=== PATIENT | male | born 1940 | race Caucasian/White ===

== ENCOUNTER 2022-01-30 17:53 | Emergency (ER) | payer MEDICARE, SELFPAY ==
[2022-01-30 17:55] VITALS: BP 169/99; PULSE 67; RESP 12; TEMP 35.7; O2SAT 93; BMI 33.5
--- NOTE | 2022-01-30 18:13 | EDS_ITS ---
HPI HPI - Psych History of Present Illness Chief Complaint: Depression Detail of Chief Complaint: Depression for years Informant: patient, spouse/S.O. and family Onset/Context/Timing Onset: - (Years) Context: Continuous Conflict: Family Timing: Continuous and Waxes and wanes Worsened by: Situational factors Relieved by: Nothing Associated Symptoms Associated Symptoms - Psych: Positive for Depressed, Change in Eating, Change in sleeping, Decreased Interest, Decreased Concentration and Easily distracted; Negative for Visual Hallucinations and Auditory Hallucinations Specific plan (suicidal thought): Patient has no plan Narrative Narrative: Patient is an 81-year-old male who has been depressed for years. He was seen by therapist Jah at 180. Therapist Jah called Cait from the crisis center that she was going to send Mr. Stahl in for admission. Therapist Jah never contacted the emergency department. Patient had thought of harming himself several days ago. He has no specific plan and states he could never hurt himself. He is never hurt himself in the past. He was recently started on trazodone and BuSpar. He is also on Effexor. He has been under stressors of hospitalization, fractured her kneecap and of a relative. He denies suicidal homicidal ideation. He is had problems with sleep appetite and interest. thought he was hallucinating because he states there is commercials on TV and is misperceiving what is on TV. I informed the daughter and the that these are not hallucination and I was told by the daughter that I have bad bedside manners . Patient denies heat or cold intolerance. Prior similar symptoms: Yes Recent Illness/Hospitalization: Yes (For pneumonia) PFSH [facility] Medical History Anxiety Depression Hyperlipidemia Hypertension Type 2 diabetes mellitus Home Medications atenolol 100 mg PO DAILY 01/30/22 [History Last Taken Unknown] buspirone 15 mg PO BID 01/30/22 [History Last Taken Unknown] gabapentin 300 mg PO DAILY 01/30/22 [History Last Taken Unknown] hydrochlorothiazide 25 mg PO DAILY 01/30/22 [History Last Taken Unknown] lisinopril 40 mg PO DAILY 01/30/22 [History Last Taken Unknown] metformin 500 mg PO DAILY 01/30/22 [History Last Taken Unknown] omeprazole 40 mg PO DAILY 01/30/22 [History Last Taken Unknown] pravastatin 40 mg PO DAILY 01/30/22 [History Last Taken Unknown] tamsulosin 0.4 mg PO DAILY 01/30/22 [History Last Taken Unknown] trazodone 50 mg PO DAILY 01/30/22 [History Last Taken Unknown] venlafaxine [Effexor] 150 mg PO DAILY 01/30/22 [History Last Taken Unknown] Allergy/AdvReac Type Severity Reaction Status Date / Time No Known Allergies Allergy Verified 01/30/22 17:55 Social History (Updated 01/30/22 @ 18:[address] Luis Garcia MD) household members: spouse Smoking Status: Never smoker substance use type: does not use ROS ROS ED Constitutional Constitutional ED: Reports weight loss; Denies chills, fever(s), subjective or sweats Eyes Eyes: Denies blurry vision, change in vision or diplopia ENT ENT ED: Denies ear pain, rhinorrhea or sore throat Cardiovascular Cardiovascular: Denies chest pain, palpitations or racing heartbeat Respiratory/Chest Respiratory/Chest: Denies cough or dyspnea Gastrointestinal Gastrointestinal: Denies abdominal pain, diarrhea, nausea or vomiting Genitourinary Genitourinary ED: Denies dysuria, hematuria or urinary frequency Musculoskeletal Musculoskeletal: Denies arthralgias, myalgias or neck pain Integumentary Denies Abrasions or rash Neurologic Neurologic: Reports weakness; Denies headache(s) or paresthesias Psychiatric Psychiatric: Reports anxiety and depression; Denies suicidal ideation or suicidal thoughts Endocrine Endocrinology: Denies polydipsia, polyphagia or polyuria Hematologic/Lymphatic Hematologic/Lymphatic: Denies easy bleeding or easy bruising EXAM Physical Exam Const Vital Signs: 01/30/22 17:55 Temperature 96.3 F L Temperature Source Temporal Pulse Rate 67 Respiratory Rate 12 Blood Pressure 169/99 H Blood Pressure Mean 122 Pulse Ox 93 Oxygen Delivery Method Room Air Positive well nourished, well developed and obese General Appearance ED: well developed and NAD; Negative for pallor Nutritional Appearance: obese HEENT normocephalic and atraumatic Eyes PERRL and EOMs intact bilaterally General Eye ED: Negative for pale conjunctiva or scleral icterus Neck no lymphadenopathy, supple and no JVD Resp normal respiratory effort and clear to auscultation bilaterally Cardio S1 normal heart sound, S2 normal heart sound and no murmurs Rate: regular rate Rhythm: regular rhythm GI non-tender, non-distended and no masses Auscultation: normoactive bowel sounds Palpation: soft Back/Spine no CVA tenderness Cervical Spine: Negative for cervical spine tenderness Thoracic Spine / Upper Back: Negative for thoracic spinal tenderness Lumbar Spine / Lower Back: Negative for lumbar spinal tenderness Extremity normal to inspection General Extremety ED: Negative for edema or tenderness General Extremity: Negative for edema Neuro oriented x3, CN's II-XII intact bilaterally and deep tendon reflexes 2+ bilaterally Tonia Coma Scale: document GCS findings Spontaneous Obeys Commands Oriented 15 Sensorium / Orientation: alert Psych thought process normal, cooperative, denies hallucinations, denies homicidal ideation and denies suicidal ideation; Negative for mental status grossly normal Appearance: appropriate Attitude: withdrawn Activity / Motor Behavior: appropriate eye contact and psychomotor slowing Speech: minimal, slow and soft Mood & Affect: depressed, apathetic and flat affect Thought Process: normal thought process Thought Content: No suicidality, No homicidality, No phobia(s), No hallucination(s), No derealization, No depersonalization, No compulsion(s) and No obsession(s) Attention / Concentration: attention grossly intact Memory / Cognition: memory grossly intact Insight: fair Judgement: fair Skin General Skin Exam: Negative for jaundice or pallor Lesions: no lesions Rashes: no rashes MDM MDM MDM Narrative Medical decision making narrative: Patient and family were told in my professional opinion patient does not meet criteria for admission. They were upset because they were sent here for hospitalization. They informed me that therapist Jah contact crisis. Crisis was contacted. Cait answered the call. She did receive a call from spenser Tyson. She agrees based on what therapist adriane said patient does not meet criteria. She also informed me that patient was seen at [facility] last evening and was sent home because he did not meet criteria for admission. This was withheld during my history and physical with the patient and family. I informed Cait that the family is requesting crisis see Mr. Stahl. She states Yasmeen is presently with someone and will be by when she is completed her present evaluation. At this point no laboratory tests were ordered. Patient was asked if he would voluntarily be admitted to a psychiatric facility and he responded no. In my professional medical opinion patient has the capac ity to refuse admission to a psychiatric facility. Furthermore in my professional medical opinion patient does not meet criteria for emergent psychiatric admission, [facility] . I was informed by Yasmeen that she completed her evaluation at 1920. She is going to inform the and daughter that he does not meet criteria for admission and will be discharged to home. Discharge Plan Triage Chief Complaint: Depression ED Provider: Luis Garcia Dx/Rx/DC Orders Clinical Impression: Depression Instructions: ED Depression Prescriptions: No Action trazodone 50 mg Tablet 50 mg PO DAILY RF: 0 pravastatin 40 mg Tablet 40 mg PO DAILY RF: 0 atenolol 100 mg Tablet 100 mg PO DAILY RF: 0 omeprazole 40 mg Capsule,Delayed Release(Dr/Ec) 40 mg PO DAILY RF: 0 venlafaxine [Effexor] 100 mg Tablet 150 mg PO DAILY RF: 0 tamsulosin 0.4 mg Capsule 0.4 mg PO DAILY RF: 0 hydrochlorothiazide 25 mg Tablet 25 mg PO DAILY RF: 0 lisinopril 40 mg Tablet 40 mg PO DAILY RF: 0 metformin 500 mg Tablet Extended Release 24 Hr 500 mg PO DAILY RF: 0 buspirone 15 mg Tablet 15 mg PO BID RF: 0 gabapentin 300 mg Tablet 300 mg PO DAILY RF: 0 Primary Care Provider: Jonathan Mathew NP Referrals: Jonathan Mathew TESTING MANAGER, TESTING MANAGER-C [Primary Care Provider] - 1 Week Disposition Disposition: Home, Self Care
--- NOTE | 2022-01-30 18:54 | ED.RN ---
LEYLA FROM CRISES IN TO TALK WITH PT
== END 2022-01-30 19:42 | disposition home or self-care (01) ==
PROVIDERS: Emergency Provider Emergency Medicine; PCP Nurse Practitioner Family; Visit Provider Emergency Medicine
DX: F32.A Depression, unspecified (principal); E11.9 Type 2 diabetes mellitus without complications; E78.5 Hyperlipidemia, unspecified; R44.3 Hallucinations, unspecified; I10 Essential (primary) hypertension; Z79.899 Other long term (current) drug therapy; F41.9 Anxiety disorder, unspecified
CPT/HCPCS: 99282

== ENCOUNTER 2022-08-16 20:04 | Inpatient (IN) | payer MEDICARE, SELFPAY ==
[2022-08-16] VITALS (8 sets, daily range): BP systolic 83–97; BP diastolic 56–69; PULSE 99–110; RESP 27–45; TEMP 36.3–37.6; O2SAT 97–99; BMI 30.4
--- NOTE | 2022-08-16 20:21 | EDS_ITS ---
HPI History of Present Illness Chief Complaint: General Illness Detail of Chief Complaint: Fever, hematuria, mental status change Informant: EMS and SNF Onset/Context/Timing Onset: Today Narrative Narrative: Patient presents the emergency department via EMS. Patient had a care home facility in a dementia unit. Apparently today they noticed low oxygen level and low blood pressure and decreased mentation. Referred to the ER for evaluation. Patient also was noted to have hematuria from his Lora catheter bag. Patient is a very poor historian although he did deny chest pain and denied abdominal pain when asked. [facility] Medical History Anxiety Depression Hyperlipidemia Hypertension Type 2 diabetes mellitus Home Medications metformin 500 mg tablet,extended release 24 hr 500 mg PO BID 01/30/22 [History Last Taken Unknown] omeprazole 40 mg capsule,delayed release 20 mg PO DAILY 01/30/22 [History Last Taken Unknown] tamsulosin 0.4 mg capsule 0.4 mg PO DAILY 01/30/22 [History Last Taken Unknown] amino acids-protein hydrolys 30 ml PO/SL DAILY 08/16/22 [History Last Taken Unknown] amlodipine 10 mg tablet 10 mg PO DAILY 08/16/22 [History Last Taken Unknown] apixaban 5 mg tablet (Eliquis) 5 mg PO BID 08/16/22 [History Last Taken Unknown] metoprolol tartrate 100 mg tablet 100 mg PO BID 08/16/22 [History Last Taken Unknown] mirtazapine 15 mg tablet 15 mg PO QHS 08/16/22 [History Last Taken Unknown] multivitamin 1 tab PO/SL DAILY 08/16/22 [History Last Taken Unknown] olanzapine 5 mg tablet 5 mg PO DAILY 08/16/22 [History Last Taken Unknown] Allergy/AdvReac Type Severity Reaction Status Date / Time No Known Allergies Allergy Verified 01/30/22 17:55 Social History (Updated 01/30/22 @ 18:[address] Luis Garcia MD) household members: spouse Smoking Status: Never smoker substance use type: does not use ROS ROS ED Review of Systems ROS Unobtainable: other Constitutional Constitutional ED: Reports fever(s); Denies chills, sweats or weight loss Eyes Eyes: Denies blurry vision, change in vision or diplopia ENT ENT ED: Denies rhinorrhea or sore throat Cardiovascular Cardiovascular: Denies chest pain, orthopnea or racing heartbeat Respiratory/Chest Respiratory/Chest: Reports dyspnea; Denies cough, dyspnea on exertion, orthopnea or sputum Gastrointestinal Gastrointestinal: Denies abdominal pain, diarrhea, nausea or vomiting Genitourinary Genitourinary ED: Denies dysuria, hematuria or urinary frequency Musculoskeletal Musculoskeletal: Denies arthralgias, back pain, myalgias or neck pain Integumentary Denies abscess, Abrasions or rash Neurologic Neurologic: Denies headache(s) or weakness Psychiatric Psychiatric: Denies anxiety, depression or suicidal thoughts Endocrine Endocrinology: Denies polydipsia, polyphagia or polyuria Hematologic/Lymphatic Hematologic/Lymphatic: Denies easy bleeding, easy bruising or lymphadenopathy Allergic/Immunologic Allergic/Immunologic ED: Denies mouth swelling, tongue swelling or urticaria EXAM Physical Exam Const Vital Signs: 08/16/22 20:06 08/16/22 20:12 08/16/22 20:09 Temperature 97.5 F L 97.3 F L Temperature Source Temporal Temporal Pulse Rate 110 H 107 H Respiratory Rate 45 H 34 H Respiratory Pattern Blood Pressure 85/57 L 85/57 L Blood Pressure Mean 66 66 Pulse Ox 98 97 Oxygen Delivery Method Non-Rebreather Non-Rebreather Oxygen Flow Rate (L/min) 10 10 08/16/22 20:16 08/16/22 20:17 08/16/22 21:09 Temperature 97.6 F L Temperature Source Temporal Pulse Rate 108 H Respiratory Rate 27 H Respiratory Pattern Tachypnea Blood Pressure 97/69 Blood Pressure Mean 78 Pulse Ox 99 99 Oxygen Delivery Method Nasal Cannula Nasal Cannula Oxygen Flow Rate (L/min) 4 4 08/16/22 21:04 08/16/22 22:00 08/16/22 22:00 Temperature 97.3 F L Temperature Source Temporal Pulse Rate 108 H 100 100 Respiratory Rate 27 H Respiratory Pattern Blood Pressure 92/58 L Blood Pressure Mean 69 Pulse Ox 99 Oxygen Delivery Method Nasal Cannula Oxygen Flow Rate (L/min) 3 08/16/22 23:00 08/16/22 23:00 Temperature 99.6 F H Temperature Source Oral Pulse Rate 99 99 Respiratory Rate 29 H Respiratory Pattern Blood Pressure 83/56 L Blood Pressure Mean 65 Pulse Ox 99 Oxygen Delivery Method Nasal Cannula Oxygen Flow Rate (L/min) 2 Positive well nourished and well developed General Appearance ED: well developed and NAD HEENT Reports TM's clear and moist mucous membranes normocephalic and atraumatic; Negative for trauma or tenderness Tympanic Membrane ED: Yes TM's clear Eyes PERRL and EOMs intact bilaterally General Eye ED: Negative for pale conjunctiva or scleral icterus Neck no lymphadenopathy, supple and no JVD General: Negative for tenderness Chest Wall inspection of chest normal and palpation of chest normal Chest: Negative for tenderness Resp Resp Narrative: Patient with some coarse rhonchi bilaterally with some mild tachypnea. No accessory muscle use or retractions noted. Effort and Inspection: Negative for respiratory distress or pain with movement Auscultation: rhonchi; Negative for wheezes or diminished lung sounds Cardio regular rate, regular rhythm, S1 normal heart sound, S2 normal heart sound and no murmurs Peripheral Pulses: pulses 2+ throughout GI normal to inspection, nondistended, normoactive bowel sounds, soft to palpation, non-tender, non-distended and no masses Back/Spine no CVA tenderness and no thoracic nor lumbar tenderness Extremity normal to inspection General Extremety ED: Negative for edema General Extremity: Negative for edema Neuro oriented x3, CN's II-XII intact bilaterally, no sensory deficits noted and gait normal Sensorium / Orientation: awake, alert, oriented to person, oriented to place and oriented to time Motor Exam: strength 5/5 throughout and strength abnormal Psych mental status grossly normal Skin no rashes or lesions noted and no wounds MDM MDM MDM Narrative Medical decision making narrative: IV line established on arrival. Patient received total of 3 L of normal saline for suspected sepsis. Patient initially did respond with his blood pressure increasing into the 115 systolic range but then slowly started to come back down into the 90s and 80s systolic. Patient had a white blood cell count of 3.6. Hemoglobin was 13.4. Chemistries unremarkable. He did have an elevated lactate of 7.1. LFTs were elevated. Urinalysis was significant for 100 leukocyte Estrace with 50-100 WBCs and +3 bacteria. Urine sent for culture. Patient started on Rocephin 1 g IV. Case discussed with hospitalist who presented to evaluate patient in the emergency department. Patient did require a central line placement for pressors. Patient had a chest x-ray obtained postprocedure interpreted by myself as good placement with tip of central lumen catheter in the superior vena cava without evidence of pneumothorax. Patient will be admitted to the ICU. Lab Data Labs: Laboratory Results - last 24 hr 08/16/22 08/16/22 08/16/22 20:15 20:15 20:15 WBC 3.6 L RBC 4.66 Hgb 13.4 Hct 41.2 MCV 88.4 MCH 28.8 MCHC 32.5 RDW Std Deviation 46.4 H RDW Coeff of Benjamin 14.5 Plt Count 128 L MPV 9.7 Immature Gran % (Auto) 0.500 Neut % (Auto) 93.4 H Lymph % (Auto) 4.4 L Gage % (Auto) 0.3 Eos % (Auto) 1.1 Baso % (Auto) 0.3 Absolute Neuts (auto) 3.4 Absolute Lymphs (auto) 0.16 L Nucleated RBC % 0 Differential Comment SEE COMMENT Platelet Estimate SLT DEC RBC Morphology N CHROM Anisocytosis 1+ Macrocytosis 1+ Sodium 142 Potassium 4.0 Chloride 105 Carbon Dioxide 27.0 Anion Gap 10 BUN 23 H Creatinine 1.22 Estim Creat Clear Calc 45.07 Est GFR (MDRD) Af Amer 73 Est GFR (MDRD) Non-Af 60 BUN/Creatinine Ratio 18.9 Glucose 177 H Lactic Acid 7.1 H* Calcium 9.1 Total Bilirubin 0.80 AST 300 H ALT 131 H Alkaline Phosphatase 220 H Troponin I High Sens 15 Total Protein 6.3 L Albumin 2.6 L Globulin 3.7 Albumin/Globulin Ratio 0.7 L Urine Color Urine Clarity Urine pH Ur Specific [place] Urine Protein Urine Glucose (UA) Urine Ketones Urine Occult Blood Urine Nitrite Urine Bilirubin Urine Urobilinogen Ur Leukocyte Esterase Urine RBC Urine WBC Ur Squamous Epith Cells Urine Bacteria Urine Mucus 08/16/22 20:25 WBC RBC Hgb Hct MCV MCH MCHC RDW Std Deviation RDW Coeff of Benjamin Plt Count MPV Immature Gran % (Auto) Neut % (Auto) Lymph % (Auto) Gage % (Auto) Eos % (Auto) Baso % (Auto) Absolute Neuts (auto) Absolute Lymphs (auto) Nucleated RBC % Differential Comment Platelet Estimate RBC Morphology Anisocytosis Macrocytosis Sodium Potassium Chloride Carbon Dioxide Anion Gap BUN Creatinine Estim Creat Clear Calc Est GFR (MDRD) Af Amer Est GFR (MDRD) Non-Af BUN/Creatinine Ratio Glucose Lactic Acid Calcium Total Bilirubin AST ALT Alkaline Phosphatase Troponin I High Sens Total Protein Albumin Globulin Albumin/Globulin Ratio Urine Color Red Urine Clarity Turbid Urine pH 8.0 Ur Specific [place] 1.015 Urine Protein 500 H Urine Glucose (UA) Normal Urine Ketones 5 H Urine Occult Blood 250 H Urine Nitrite Negative Urine Bilirubin Negative Urine Urobilinogen Normal Ur Leukocyte Esterase 100 H Urine RBC > 100 SEEN Urine WBC 50-100 SEEN Ur Squamous Epith Cells 0 SEEN Urine Bacteria 3+ Urine Mucus 0 SEEN Radiography Diagnostic Testing: Clinical Impression(s) from Imaging Studies Chest X-Ray 08/16/22 20:43 IMPRESSION: Degenerative changes, as described above. No demonstrated acute cardiopulmonary process. Electronically Signed: Lico Crocker DO at 20:58 EST , Gallbladder Ultrasound 08/16/22 21:16 IMPRESSION: 1. Cholelithiasis. No evidence of acute cholecystitis. 2. Simple renal cyst. Follow-up is not indicated per ACR guidelines. Electronically Signed: Elana Lazar MD at 23:11 EST Reading Location ID and State: [id number] / Tel , Service support , 1 view chest x-ray initially interpreted by myself as no acute disease process. Radiology was in agreement. EKG Initial EKG: Attestation: I personally reviewed and interpreted this EKG as follows: Comments: Sinus rhythm with a rate of 94 bpm with frequent PVCs and old inferior infarct Procedures Other Procedures Procedure(s): Patient and consented to central line placement for pressors. Area of the right subclavian sterilely draped and prepped. Locally anesthetized with 1% lidocaine total of 5 cc. Wound skin cleansed. Was able to introduce the needle underneath the clavicle towards the sternal notch and easily cannulated the subclavian vein. Guidewire placed through the needle and needle removed. 11 blade used to make a small skin incision along the guidewire and dilator placed over the wire and dilated the soft tissues. The triple-lumen catheter was flushed and all ports flushed. Triple-lumen placed over wire and wire was removed. All 3 ports were aspirated and then flushed. Catheter sewn into place. Patient Toller procedure well. Critical Care Time Critical care time (excluding procedures): 30-74 minutes, Including time spent:, Discussing w/Patient &/or Family/Oyster Worker, Discussing w/Consultants, Arranging Admission or Transfer, Performing Direct Patient Care at Bedside and - (30 minutes) Discharge Plan Dx/Rx/DC Orders Clinical Impression: Acute UTI, Severe sepsis, Acute hypotension, History of dementia, Elevated liver enzymes Disposition Disposition: Acute Care [facility]
[2022-08-16] MEDS: 0.9% Normal Saline 1,000 ML 1000 ML IV (20:30)
[2022-08-16 20:33] LABS: Absolute Lymphocyte Count 0.16 X10^3/uL (0.83-4.51); Absolute Neutrophil Count 3.4 X10^3/uL (2.0-7.7); Basophil# 0.01 X10^3/uL; Basophil% 0.3 % (0-1); Differential Indicated SCAN CRITERIA MET; Eosinophil# 0.04 X10^3/uL; Eosinophils% 1.1 % (0-5); Hematocrit 41.2 % (40-54); Hemoglobin 13.4 g/dL (13.0-16.5); Lymphocyte # 0.16 X10^3/ul (0.83-4.51); Lymphocyte % 4.4 % (19-41); Mean Corp Hgb Conc 32.5 g/dL (32-36); Mean Corpuscular Hgb 28.8 pg (27.0-32.0); Mean Corpuscular Volume 88.4 fL (80-94); Mean Platelet Vol. 9.7 fl (6.2-12.0); Monocyte# 0.01 X10^3/uL; Monocyte% 0.3 % (0-10); NRBC Flagged by Analyzer 0 % (0-5); Neutrophil % 93.4 % (47-70); POSITIVE DIFFERENTIAL YES; POSITIVE MORPHOLOGY YES; Platelet Count 128 K/mm3 (150-450); RBC Distribution Width CV 14.5 % (11.6-14.6); RBC Distribution Width SD 46.4 fl (35.1-43.9); Red Blood Count 4.66 M/mm3 (4.6-6.2); White Blood Count 3.6 K/mm3 (4.4-11.0)
[2022-08-16 20:38] LABS: Mucous, Urine 0 SEEN /hpf (<or=2+); Squamous Epithelial Cells - UA 0 SEEN /hpf (0-5)
[2022-08-16 20:40] LABS: Color, Urine Red (Yellow); Glucose, Dipstick Normal (Normal); Ketone-Dipstick 5 mg/dl (Negative); Leukocyte Esterase-Dipstick 100 /ul (Negative); Nitrite-Dipstick Negative (Negative); Occult Blood-Urine 250 /ul (Negative); Protein-Dipstick 500 mg/dl (Negative); Specific Gravity, Urine 1.015 (1.002-1.030); Urine Bilirubin Dipstick Negative (Negative); Urine Clarity Turbid (Clear); Urine Urobilinogen Normal (Normal)
--- NOTE | 2022-08-16 20:43 | RAD_ITS ---
STUDY: X-RAY CHEST REASON FOR EXAM: Male, 82 years old. Dyspnea. History of hypotension. Low oxygen saturation. New onset hematuria. TECHNIQUE: Single AP portable view of the chest. COMPARISON: None. FINDINGS: The lungs are clear and expanded. There is no demonstrated pleural abnormality. Normal size heart. Normal mediastinum and filiberto. Normal visualized pulmonary arteries. Normal visualized aortic arch and descending thoracic aorta. There are diffuse degenerative changes of the visualized thoracic spine. Normal visualized ribs, clavicles, and shoulders. There is no demonstrated abnormality of the visualized soft tissue structures of the upper abdomen. RAD/Chest 1 View (Portable) IMPRESSION: Degenerative changes, as described above. No demonstrated acute cardiopulmonary process. Electronically Signed: Lico Crocker DO at 20:58 EST ,
[2022-08-16 20:52] LABS: ALB/GLOB Ratio 0.7 RATIO (0.9-2.4); AST(SGOT) 300 U/L (15-37); Alanine Aminotransfer ALT/SGPT 131 U/L (16-61); Albumin, Serum 2.6 g/dL (3.2-5.0); Alkaline Phosphatase 220 U/L (45-117); Anion Gap 10 (5-15); BUN 23 mg/dL (7-18); BUN/Creat Ratio 18.9 RATIO (10-20); Calcium,Total 9.1 mg/dL (8.5-10.1); Chloride 105 mmol/L (98-107); Creatinine, Serum 1.22 mg/dL (0.70-1.30); EST Glomerular Filtration Rate 60 mL/min (>60); Est Glom Filt Rate - Afr Amer 73 mL/min (>60); Estimated Creatinine Clearance 45.07 ml/min; Globulin 3.7 g/dL (2.2-4.2); Glucose 177 mg/dL (74-106); Protein, Total 6.3 g/dL (6.4-8.2); Sodium Level 142 mmol/L (136-145); Troponin-I HS 15 pg/mL (3.0-78.0)
[2022-08-16 20:57] LABS: Anisocytosis 1+; Macrocytosis 1+; Platelet Estimate SLT DEC (ADEQ); Red Cell Morphology N CHROM NORMAL (NORM C&C)
[2022-08-16 21:10] LABS: Lactic Acid 7.1 mmol/L (0.4-1.9)
[2022-08-16] MEDS: 0.9% Normal Saline 1,000 ML 150 ML IV (21:13)
--- NOTE | 2022-08-16 21:16 | US_ITS ---
EXAM: US ABDOMEN LIMITED, RIGHT UPPER QUADRANT CLINICAL INDICATION: elevated liver enzymes TECHNIQUE: Real-time ultrasound of the right upper quadrant with image documentation. This report was created using [employer] report generation technology. COMPARISON: None. FINDINGS: LIVER: The liver is normal in size and echogenicity, measuring 20.4 cm. No intrahepatic biliary ductal dilation. GALLBLADDER: Multiple shadowing stones in the gallbladder. No gallbladder wall thickening is demonstrated. No pericholecystic fluid. Negative sonographic Smalls''s sign. COMMON BILE DUCT: Unremarkable as visualized. The proximal common bile duct is within normal limits for the patient''s age. PANCREAS: Unremarkable as visualized. No focal abnormality is demonstrated in the pancreas. No pancreatic ductal dilatation. RIGHT KIDNEY: Right kidney measures 10.7 x 6.4 x 6 cm. Mild renal scarring. Renal cortical thickness is otherwise normal. No mass, stone, or hydronephrosis. There is a 2.6 x 1.9 x 2.1 cm upper pole simple renal cyst. US/Gallbladder IMPRESSION: 1. Cholelithiasis. No evidence of acute cholecystitis. 2. Simple renal cyst. Follow-up is not indicated per ACR guidelines. Electronically Signed: Elana Lazar MD at 23:11 EST Reading Location ID and State: [id number] / Tel , Service support ,
[2022-08-16 21:19] LABS: Bacteria 3+ /hpf (None Seen); Red Blood Cells-Urine > 100 SEEN /hpf (0-5); White Blood Cells 50-100 SEEN /hpf (0-5)
[2022-08-16] MEDS: 0.9% Normal Saline 1,000 ML 999 ML IV ×2 (21:20→22:20)
[2022-08-16] MEDS: Ceftriaxone 1 GM/50 ML BAG IV (21:32)
--- NOTE | 2022-08-16 23:51 | RAD_ITS ---
STUDY: X-RAY CHEST REASON FOR EXAM: Male, 82 years old patient with central line placement. TECHNIQUE: Single AP portable view of the chest. COMPARISON: None. FINDINGS: Cardiac monitoring leads are present. A right-sided central venous catheters visible right subclavian vein and the tip of the catheter is in the superior vena cava. The lungs are underexpanded with prominence of bronchovascular markings. There is perihilar interstitial thickening. There is no demonstrated pleural abnormality. There is mild cardiac enlargement. Normal mediastinum and filiberto. Normal visualized pulmonary arteries. There is atherosclerotic tortuosity of the aortic arch and descending thoracic aorta. Normal visualized thoracic spine. Normal visualized ribs, clavicles, and shoulders. There is no demonstrated abnormality of the visualized soft tissue structures of the upper abdomen. RAD/Chest 1 View (Portable) IMPRESSION: 1. Appropriate positioning of the right-sided central venous catheter without evidence for pneumothorax. 2. Cardiomegaly and mild pulmonary congestion. Electronically Signed: Maria Alejandra Lay MD at 0:21 EST ,
[2022-08-17] VITALS (49 sets, daily range): BP systolic 69–122; BP diastolic 50–85; PULSE 81–104; RESP 20–96; TEMP 36.9–38.9; O2SAT 85–99; BMI 25.5
--- NOTE | 2022-08-17 00:01 | EKG12_ITS ---
Test Reason : DYSRHYTHMIA Blood Pressure : / mmHG Vent. Rate : 094 BPM Atrial Rate : 094 BPM P-R Int : 176 ms QRS Dur : 084 ms QT Int : 352 ms P-R-T Axes : 021 -20 027 degrees QTc Int : 440 ms Sinus rhythm with frequent Premature ventricular complexes Low voltage QRS Inferior infarct , age undetermined Abnormal ECG Confirmed by CHAPIN GRULLON, ANGELA ([id number]), production editor MALICK MORENO ([id number]) on 08/20/2022 8:00:11 AM Referred By: SCOTT Confirmed By:ANGELA SAMSON MD
--- NOTE | 2022-08-17 00:20 | HP.PCM.HOS_ITS ---
HPI - General General Date of Admission: 08/17/22 HPI Narrative ANDRE BROOKS, is a 82 M who presents to the hospital from a assisted secondary to feeling unwell as well as dyspnea. Chest x-ray in the ER was unremarkable and he is a poor historian secondary to history of dementia as well as multiple mental health problems. He is currently in the assisted because of his dementia issues. According to the she says that his dementia seem to have been improving, he has been having a lot of difficulty since about December of this year because of mental health problems, he has severe history of depression and has been had electroshock therapy multiple times in the past. Sh torri denies any history of bipolar disorder though it is in the family. She states that he is also had several episodes of suicidal ideation but nothing resembling a plan. He was recently in [facility] for what sounds like cardiac problems that she could not be more specific, she thinks that they had to shock him because of an abnormal heart rhythm but they did not do much more and he is on Eliquis and metoprolol so A. fib is a possibility. She states that the last time she saw him at the assisted was on Friday and he was doing fine but then so this all happened within the last couple of days. She states that he has had a Lora in for quite a while and she is not sure why, he has been having intermittent issues with infections though she is not sure as to the kind of infection, but she thinks that he has been on antibiotics at least once or twice in the last couple months. [facility] Medical History Anxiety Depression Hyperlipidemia Hypertension Type 2 diabetes mellitus Home Medications metformin 500 mg tablet,extended release 24 hr 500 mg PO BID 01/30/22 [History Last Taken Unknown] omeprazole 40 mg capsule,delayed release 20 mg PO DAILY 01/30/22 [History Last Taken Unknown] tamsulosin 0.4 mg capsule 0.4 mg PO DAILY 01/30/22 [History Last Taken Unknown] amino acids-protein hydrolys 30 ml PO/SL DAILY 08/16/22 [History Last Taken Unknown] amlodipine 10 mg tablet 10 mg PO DAILY 08/16/22 [History Last Taken Unknown] apixaban 5 mg tablet (Eliquis) 5 mg PO BID 08/16/22 [History Last Taken Unknown] metoprolol tartrate 100 mg tablet 100 mg PO BID 08/16/22 [History Last Taken Unknown] mirtazapine 15 mg tablet 15 mg PO QHS 08/16/22 [History Last Taken Unknown] multivitamin 1 tab PO/SL DAILY 08/16/22 [History Last Taken Unknown] olanzapine 5 mg tablet 5 mg PO DAILY 08/16/22 [History Last Taken Unknown] Allergy/AdvReac Type Severity Reaction Status Date / Time No Known Allergies Allergy Verified 01/30/22 17:55 unable to obtain unable to obtain Social History (Updated 01/30/22 @ 18:[address] Luis Garcia MD) household members: spouse Smoking Status: Never smoker substance use type: does not use ROS Review of Systems ROS Unobtainable: due to mental status Vital Signs Vital Signs Vital Signs: 08/16/22 20:06 08/16/22 20:12 08/16/22 20:09 Temperature 97.5 F L 97.3 F L Temperature Source Temporal Temporal Pulse Rate 110 H 107 H Respiratory Rate 45 H 34 H Respiratory Pattern Blood Pressure 85/57 L 85/57 L Blood Pressure Mean 66 66 Blood Pressure Source Blood Pressure Position Blood Pressure Location Pulse Ox 98 97 Oxygen Delivery Method Non-Rebreather Non-Rebreather Oxygen Flow Rate (L/min) 10 10 08/16/22 20:16 08/16/22 20:17 08/16/22 21:09 Temperature 97.6 F L Temperature Source Temporal Pulse Rate 108 H Respiratory Rate 27 H Respiratory Pattern Tachypnea Blood Pressure 97/69 Blood Pressure Mean 78 Blood Pressure Source Blood Pressure Position Blood Pressure Location Pulse Ox 99 99 Oxygen Delivery Method Nasal Cannula Nasal Cannula Oxygen Flow Rate (L/min) 4 4 08/16/22 21:04 08/16/22 22:00 08/16/22 22:00 Temperature 97.3 F L Temperature Source Temporal Pulse Rate 108 H 100 100 Respiratory Rate 27 H Respiratory Pattern Blood Pressure 92/58 L Blood Pressure Mean 69 Blood Pressure Source Blood Pressure Position Blood Pressure Location Pulse Ox 99 Oxygen Delivery Method Nasal Cannula Oxygen Flow Rate (L/min) 3 08/16/22 23:00 08/16/22 23:00 08/17/22 00:12 Temperature 99.6 F H 99.5 F H Temperature Source Oral Oral Pulse Rate 99 99 96 Respiratory Rate 29 H 28 H Respiratory Pattern Blood Pressure 83/56 L 69/56 L Blood Pressure Mean 65 60 Blood Pressure Source Monitor Blood Pressure Position Semi-Fowlers Blood Pressure Location Left Arm Pulse Ox 99 99 Oxygen Delivery Method Nasal Cannula Nasal Cannula Oxygen Flow Rate (L/min) 2 2 08/17/22 00:16 08/17/22 00:03 08/17/22 00:00 Temperature 99.5 F H 99.5 F H 99.5 F H Temperature Source Oral Oral Oral Pulse Rate 92 94 92 Respiratory Rate 26 H 33 H 26 H Respiratory Pattern Blood Pressure 77/50 L 77/50 L 77/50 L Blood Pressure Mean 59 59 59 Blood Pressure Source Blood Pressure Position Blood Pressure Location Pulse Ox 98 98 98 Oxygen Delivery Method Nasal Cannula Nasal Cannula Nasal Cannula Oxygen Flow Rate (L/min) 2 2 2 08/17/22 00:00 Temperature Temperature Source Pulse Rate 92 Respiratory Rate Respiratory Pattern Blood Pressure Blood Pressure Mean Blood Pressure Source Blood Pressure Position Blood Pressure Location Pulse Ox Oxygen Delivery Method Oxygen Flow Rate (L/min) Weight Weight: 205 lb 14.588 oz Body Mass Index (BMI) 30.4 Physical Exam Narrative General: Drowsy but alert to voice, disoriented and confused HEENT: Atraumatic, PERRLA, EOMI, Normocephalic Oral: Dry mucosa Neck: Supple, No JVD Lungs: Diminished, Normal air movement, No rhonchi, No wheeze, No rales Cardiovascular: Tachycardic, Regular Rhythm, Normal S1, Normal S2, No murmurs Abdomen: Soft, Non Tender, Non-Distended, No Hepato-splenomegaly Extremities: No edema, Capillary Refill Less than 3 Seconds Skin: No rashes, No breakdown Musculoskeletal: No Tenderness to Palpation of Joints or Extremities Neurological: Unable to follow commands, but he is moving all extremities Psych/Mental Status: Flat affect, Appropriate Results Lab / Micro Data Result Diagrams: 08/16/22 20:15 08/16/22 20:15 Labs: Laboratory Results - last 24 hr 08/16/22 20:15: WBC 3.6 L, RBC 4.66, Hgb 13.4, Hct 41.2, MCV 88.4, MCH 28.8, MCHC 32.5, RDW Std Deviation 46.4 H, RDW Coeff of Benjamin 14.5, Plt Count 128 L, MPV 9.7, Immature Gran % (Auto) 0.500, Neut % (Auto) 93.4 H, Lymph % (Auto) 4.4 L, [place] % (Auto) 0.3, Eos % (Auto) 1.1, Baso % (Auto) 0.3, Absolute Neuts (auto) 3.4, Absolute Lymphs (auto) 0.16 L, Nucleated RBC % 0, Differential Comment SEE COMMENT, Platelet Estimate SLT DEC, RBC Morphology N CHROM, Anisocytosis 1+, Macrocytosis 1+ 08/16/22 20:15: Sodium 142, Potassium 4.0, Chloride 105, Carbon Dioxide 27.0, Anion Gap 10, BUN 23 H, Creatinine 1.22, Estim Creat Clear Calc 45.07, Est GFR (MDRD) Af Amer 73, Est GFR (MDRD) Non-Af 60, BUN/Creatinine Ratio 18.9, Glucose 177 H, Calcium 9.1, Total Bilirubin 0.80, AST 300 H, ALT 131 H, Alkaline Phosphatase 220 H, Troponin I High Sens 15, Total Protein 6.3 L, Albumin 2.6 L, Globulin 3.7, Albumin/Globulin Ratio 0.7 L 08/16/22 20:15: Lactic Acid 7.1 H* 08/16/22 20:25: Urine Color Red, Urine Clarity Turbid, Urine pH 8.0, Ur Specific [place] 1.015, Urine Protein 500 H, Urine Glucose (UA) Normal, Urine Ketones 5 H , Urine Occult Blood 250 H, Urine Nitrite Negative, Urine Bilirubin Negative, Urine Urobilinogen Normal, Ur Leukocyte Esterase 100 H, Urine RBC > 100 SEEN, Urine WBC 50-100 SEEN, Ur Squamous Epith Cells 0 SEEN, Urine Bacteria 3+, Urine Mucus 0 SEEN Micro: Microbiology 08/16/22 20:25 Nasal Secretion SARS-CoV-2 & FLU Antigen (Rapid) - Final Radiology Impression Chest X-Ray 08/16/22 20:43 IMPRESSION: Degenerative changes, as described above. No demonstrated acute cardiopulmonary process. Electronically Signed: Lico Crocker DO at 20:58 EST Reading Location ID and State: [facility] / [place] Tel [phone], Service support , Gallbladder Ultrasound 08/16/22 21:16 IMPRESSION: 1. Cholelithiasis. No evidence of acute cholecystitis. 2. Simple renal cyst. Follow-up is not indicated per ACR guidelines. Electronically Signed: Elana Lazar MD at 23:11 EST , Assessment & Plan Assessment/Plan (1) Acute UTI: (2) Septic shock: PLAN: Plan 1. Septic shock secondary to UTI ? His systolic blood pressures were well below 90 and he did not respond to appropriate fluid resuscitation. Lactic acid of 7.2, this could be in response to taking metformin at the assisted while sick ? Continue with aggressive IV fluids ? Had a central line placed by the ED physician and will continue with Levophed ? We will transfer him to the ICU ? Continue with Rocephin given the source is a UTI cultures are pending 2. HTN/A. fib ? We will hold his blood pressure medication secondary to his septic shock and the need for pressor support ? We will continue with his Eliquis 3. DM2 ? We will hold his oral metformin secondary to his lactic acidosis ? Continue with insulin and will make adjustments as necessary ? Accu-Cheks AC at bedtime 4. Depression ? Stable ? We will continue with his olanzapine 5. GERD ? Stable ? Continue with PPI DVT: Phyllis Sepsis Attestation Sepsis Attestation: Agree w/Sepsis Possible Source of Sepsis: Genitourinary Sepsis Organ Dysfunction Criteria Present: SBP < 90 mmHg or MAP < 65 mmHg, Lactic Acid > 2 mmol/L and New/Unexplained change in mental status Fluid Resuscitation Fluid resuscitation indicated?: Yes Fluid Resuscitation ordered: 30 ml/kg fluid bolus ordered Sepsis Note Date exam was performed: 08/17/22 Time exam was performed: 00:28 Sepsis Attestation: Sepsis re-evaluation was performed Response to fluids: Vasopressors started Charges/Coding Visit Charges Inpatient E&M: 56491 Init Hosp L3
[2022-08-17 00:28] LABS: Reflex Lactate? Y
[2022-08-17] MEDS: 0.9% Saline Lock 10 ML Syringe IV (01:16)
[2022-08-17] MEDS: Acetaminophen 325 MG Tablet 650 MG PO ×3 (01:16→22:21)
[2022-08-17 01:33] LABS: Lactic Acid 4.5 mmol/L (0.4-1.9)
[2022-08-17] MEDS: 0.9% Normal Saline 1,000 ML 150 ML IV ×3 (03:53→18:26)
[2022-08-17 04:23] LABS: Hematocrit 35.7 % (40-54); Hemoglobin 11.5 g/dL (13.0-16.5); Mean Corp Hgb Conc 32.2 g/dL (32-36); Mean Corpuscular Hgb 28.3 pg (27.0-32.0); Mean Corpuscular Volume 87.9 fL (80-94); POSITIVE DIFFERENTIAL YES; POSITIVE MORPHOLOGY YES; Platelet Count 103 K/mm3 (150-450); RBC Distribution Width CV 14.5 % (11.6-14.6); RBC Distribution Width SD 46.6 fl (35.1-43.9); Red Blood Count 4.06 M/mm3 (4.6-6.2); White Blood Count 28.6 K/mm3 (4.4-11.0)
[2022-08-17 04:41] LABS: Anion Gap 10 (5-15); BUN 25 mg/dL (7-18); BUN/Creat Ratio 16.8 RATIO (10-20); Calcium,Total 7.7 mg/dL (8.5-10.1); Chloride 112 mmol/L (98-107); Creatinine, Serum 1.49 mg/dL (0.70-1.30); EST Glomerular Filtration Rate 48 mL/min (>60); Est Glom Filt Rate - Afr Amer 58 mL/min (>60); Estimated Creatinine Clearance 42.91 ml/min; Glucose 116 mg/dL (74-106); Potassium 3.6 mmol/L (3.5-5.1); Sodium Level 144 mmol/L (136-145)
[2022-08-17 04:42] LABS: Metamyelocyte 13 % (0-1); Monocyte 1 % (0-10); Neutrophil-Band 16 % (0-5); Neutrophil-Segmented 70 % (47-70); Total Cells Counted 100 (MANUAL DIFF)
[2022-08-17 04:45] LABS: Differential Indicated MANUAL DIFF
[2022-08-17 04:46] LABS: Absolute Neutrophil Count 28.3 X10^3/uL (2.0-7.7); Neutrophil # 28.27 X10^3/uL (2.7-7.7)
[2022-08-17 04:47] LABS: Platelet Estimate SLT DEC (ADEQ)
[2022-08-17 04:48] LABS: Red Cell Morphology NORM C+C NORMAL (NORM C&C)
--- NOTE | 2022-08-17 06:06 | EX.PCM.CONCC ---
Assessment & Plan Assessment/Plan (1) Septic shock: PLAN: Plan RECOMMENDATIONS: 1. Continue empiric broad-spectrum antimicrobials, pending finalized culture results. 2. Continue Levophed to maintain a mean arterial pressure at or above 65 mmHg. 3. Continue Eliquis per home regimen. 4. Continue Protonix. 5. Encourage incentive spirometer use while in bed and mobilize patient as tolerated. 6. Wean supplemental oxygen to maintain saturations at or above 90%. IMPRESSIONS: 1. Gram-negative septic shock The patient presented to the hospital with sepsis due to urinary tract source of infection with secondary hematogenous spread, with acute sepsis related organ dysfunction as evidenced by fluid refractory hypotension, lactic acidemia and altered mentation. Although the patient did receive fluid resuscitation, he ultimately required the initiation of vasopressor support to maintain hemodynamic stability. Preliminary blood cultures are positive for gram-negative rods. The patient will remain on empiric broad-spectrum antimicrobials, pending finalized culture results. Goal to maintain a mean arterial pressure at or above 65 mmHg. 2. Acute liver injury Most likely secondary to hemodynamic instability. Recommend continuing to trend liver function profile daily to monitor for improvement. Otherwise, continue current supportive measures including vasopressor support to maintain hemodynamic stability. Avoid hepatotoxic medications. 3. History of hypertension/atrial fibrillation/diabetes mellitus/depression/dementia Complicates care, management, recovery and prognosis. Continue to hold home antihypertensives for now. TIME: 34 minutes of critical care time, independent of procedures, was spent addressing the patient's gram-negative septic shock, review of all data and collaboration with the care team. HPI Consult Data Date of Consult: 08/17/22 HPI Narrative Reason for Consultation: Septic shock HPI Narrative: The patient is an 82-year-old male, with a history as outlined below, who presented to the emergency department on [facility] with altered mentation and hypotension. The patient currently resides in the dementia unit of a jail facility and apparently has a chronic indwelling Lora catheter, for reasons that are not entirely clear. He does report that he was experiencing dysuria, but that the nursing staff there did nothing about it. He currently denies any abdominal pain or shortness of breath. On presentation to the emergency department, patient was noted to be afebrile but was hypotensive, tachycardic and tachypneic. Laboratory evaluation revealed an elevated white blood cell count and thrombocytopenia. Chemistry profile was notable for a creatinine of 1.49 with an initial lactate of 7.1, AST of 300, ALT of 131, alkaline phosphatase of 220 and negative troponin. Urine analysis was positive for leukocyte Estrace and 3+ urine bacteria. Gallbladder ultrasound demonstrated cholelithiasis without acute cholecystitis. The patient received supplemental IV fluid hydration and was initiated on antimicrobials. Despite fluid resuscitation, the patient remained hypotensive. Therefore, a central venous catheter was inserted and the patient was started on Levophed to maintain hemodynamic stability. Rapid flu and COVID testing were both negative. Blood and urine cultures were obtained. [facility] Medical History Anxiety Depression Hyperlipidemia Hypertension Type 2 diabetes mellitus Home Medications metformin 500 mg tablet,extended release 24 hr 500 mg PO BID 01/30/22 [History Last Taken Unknown] omeprazole 40 mg capsule,delayed release 20 mg PO DAILY 01/30/22 [History Last Taken Unknown] tamsulosin 0.4 mg capsule 0.4 mg PO DAILY 01/30/22 [History Last Taken Unknown] amino acids-protein hydrolys 30 ml PO/SL DAILY 08/16/22 [History Last Taken Unknown] amlodipine 10 mg tablet 10 mg PO DAILY 08/16/22 [History Last Taken Unknown] apixaban 5 mg tablet (Eliquis) 5 mg PO BID 08/16/22 [History Last Taken Unknown] metoprolol tartrate 100 mg tablet 100 mg PO BID 08/16/22 [History Last Taken Unknown] mirtazapine 15 mg tablet 15 mg PO QHS 08/16/22 [History Last Taken Unknown] multivitamin 1 tab PO/SL DAILY 08/16/22 [History Last Taken Unknown] olanzapine 5 mg tablet 5 mg PO DAILY 08/16/22 [History Last Taken Unknown] Allergy/AdvReac Type Severity Reaction Status Date / Time No Known Allergies Allergy Verified 01/30/22 17:55 Family History unable to obtain Surgical History unable to obtain Social History (Updated 01/30/22 @ 18:[address] Luis Garcia MD) household members: spouse Smoking Status: Never smoker substance use type: does not use ROS ROS Narrative 10 systems were reviewed with pertinent positives as noted in the HPI above. Physical Exam Const alert and no apparent distress Constitutional Narrative: The patient is actually alert and oriented x3. General Appearance: cooperative HEENT normocephalic and head/scalp atraumatic HEENT Narrative: Dry mucous membranes. Eyes PERRL, EOMs intact bilaterally and conjunctivae normal Neck supple Neck Narrative: Right subclavian central venous catheter in place General: trachea midline Chest inspection of chest normal Resp normal respiratory effort Auscultation: Negative for rales, rhonchi or wheezes Cardio regular rate and regular rhythm GI normal to inspection, nondistended, normoactive bowel sounds Extremity no clubbing, cyanosis or edema Skin no rashes or lesions noted Neuro oriented x3, CN's II-XII intact bilaterally and no focal motor deficits Psych cooperative and affect normal Lab / Micro Data Result Diagrams: 08/17/22 04:15 08/17/22 04:15 Labs: Laboratory Results - last 24 hr 08/16/22 20:15: WBC 3.6 L, RBC 4.66, Hgb 13.4, Hct 41.2, MCV 88.4, MCH 28.8, MCHC 32.5, RDW Std Deviation 46.4 H, RDW Coeff of Benjamin 14.5, Plt Count 128 L, MPV 9.7, Immature Gran % (Auto) 0.500, Neut % (Auto) 93.4 H, Lymph % (Auto) 4.4 L, [place] % (Auto) 0.3, Eos % (Auto) 1.1, Baso % (Auto) 0.3, Absolute Neuts (auto) 3.4, Absolute Lymphs (auto) 0.16 L, Nucleated RBC % 0, Differential Comment SEE COMMENT, Diff Path Review May foll, Platelet Estimate SLT DEC, RBC Morphology N CHROM, Anisocytosis 1+, Macrocytosis 1+ 08/16/22 20:15: Sodium 142, Potassium 4.0, Chloride 105, Carbon Dioxide 27.0, Anion Gap 10, BUN 23 H, Creatinine 1.22, Estim Creat Clear Calc 45.07, Est GFR (MDRD) Af Amer 73, Est GFR (MDRD) Non-Af 60, BUN/Creatinine Ratio 18.9, Glucose 177 H, Calcium 9.1, Total Bilirubin 0.80, AST 300 H, ALT 131 H, Alkaline Phosphatase 220 H, Troponin I High Sens 15, Total Protein 6.3 L, Albumin 2.6 L, Globulin 3.7, Albumin/Globulin Ratio 0.7 L 08/16/22 20:15: Lactic Acid 7.1 H* 08/16/22 20:25: Urine Color Red, Urine Clarity Turbid, Urine pH 8.0, Ur Specific [place] 1.015, Urine Protein 500 H, Urine Glucose (UA) Normal, Urine Ketones 5 H, Urine Occult Blood 250 H, Urine Nitrite Negative, Urine Bilirubin Negative, Urine Urobilinogen Normal, Ur Leukocyte Esterase 100 H, Urine RBC > 100 SEEN, Urine WBC 50-100 SEEN, Ur Squamous Epith Cells 0 SEEN, Urine Bacteria 3+, Urine Mucus 0 SEEN 08/17/22 00:52: Lactic Acid 4.5 H* 08/17/22 04:15: WBC 28.6 H, RBC 4.06 L, Hgb 11.5 L, Hct 35.7 L, MCV 87.9, MCH 28.3, MCHC 32.2, RDW Std Deviation 46.6 H, RDW Coeff of Benjamin 14.5, Plt Count 103 L, MPV 10.0, Immature Gran % (Auto) SHAREPOINT CONSULTANT, Neut % (Auto) SHAREPOINT CONSULTANT, Lymph % (Auto) SHAREPOINT CONSULTANT, [place] % (Auto) SHAREPOINT CONSULTANT, Eos % (Auto) SHAREPOINT CONSULTANT, Baso % (Auto) SHAREPOINT CONSULTANT, Absolute Neuts (auto) 28.3 H, Absolute Lymphs (auto) 0.00 L, Total Counted 100, Neutrophils % (Manual) 70, Band Neutrophils % 16 H, Monocytes % (Manual) 1, Metamyelocytes % 13 H, Nucleated RBC % SHAREPOINT CONSULTANT, Diff Path Review May foll, Platelet Estimate SLT DEC, RBC Morphology NORM C+C 08/17/22 04:15: Sodium 144, Potassium 3.6, Chloride 112 H, Carbon Dioxide 22.0, Anion Gap 10, BUN 25 H, Creatinine 1.49 H, Estim Creat Clear Calc 42.91, Est GFR (MDRD) Af Amer 58 L, Est GFR (MDRD) Non-Af 48 L, BUN/Creatinine Ratio 16.8, Glucose 116 H, Calcium 7.7 L Micro: Microbiology 08/16/22 20:25 Nasal Secretion SARS-CoV-2 & FLU Antigen (Rapid) - Final Radiology Impression Chest X-Ray 08/16/22 20:43 IMPRESSION: Degenerative changes, as described above. No demonstrated acute cardiopulmonary process. Electronically Signed: Lico Crocker DO at 20:58 EST , Gallbladder Ultrasound 08/16/22 21:16 IMPRESSION: 1. Cholelithiasis. No evidence of acute cholecystitis. 2. Simple renal cyst. Follow-up is not indicated per ACR guidelines. Electronically Signed: Elana Lazar MD at 23:11 EST Reading Location ID and State: [id number] / Tel , Service support , Chest X-Ray 08/16/22 23:51 IMPRESSION: 1. Appropriate positioning of the right-sided central venous catheter without evidence for pneumothorax. 2. Cardiomegaly and mild pulmonary congestion. Electronically Signed: Maria Alejandra Lay MD at 0:21 EST , Charges/Coding Procedures Hospitalists Procedures: [id number] Critial Care 1st Hr
[2022-08-17 06:30] LABS: AST(SGOT) 335 U/L (15-37); Alanine Aminotransfer ALT/SGPT 248 U/L (16-61); Alkaline Phosphatase 187 U/L (45-117); Bilirubin, Direct 0.69 mg/dL (0.00-0.30); Globulin 3.1 g/dL (2.2-4.2); Protein, Total 5.1 g/dL (6.4-8.2)
--- NOTE | 2022-08-17 06:44 | PCM.RX.CS ---
Consult Pharmacy has been consulted to manage selected antiobiotic: Vancomycin Type of Consult: New start Suspected Infection: Sepsis Labs: Sodium 144 mmol/L (136-145) 08/17/22 04:15 Potassium 3.6 mmol/L (3.5-5.1) 08/17/22 04:15 Chloride 112 mmol/L (98-107) H 08/17/22 04:15 Carbon Dioxide 22.0 mmol/L (21.0-32.0) 08/17/22 04:15 Anion Gap 10 (5-15) 08/17/22 04:15 BUN 25 mg/dL (7-18) H 08/17/22 04:15 Creatinine 1.49 mg/dL (0.70-1.30) H 08/17/22 04:15 Est GFR (MDRD) Af Amer 58 mL/min (>60) L 08/17/22 04:15 Est GFR (MDRD) Non-Af 48 mL/min (>60) L 08/17/22 04:15 BUN/Creatinine Ratio 16.8 RATIO (10-20) 08/17/22 04:15 Glucose 116 mg/dL (74-106) H 08/17/22 04:15 Microbiology: Microbiology 08/16/22 20:30 Blood Culture (Wb) - Left Hand Blood Culture - Preliminary 08/16/22 20:15 Blood Culture (Wb) - Venous Blood Culture - Preliminary 08/16/22 20:25 Nasal Secretion SARS-CoV-2 & FLU Antigen (Rapid) - Final Weight used for dosin.3 kg Estimated Creatinine Clearance: 44.5 Goal Trough: 15-20 mcg/mL Pharmacy Plan for Drug Dosing: Pharmacy Service will continue to monitor and adjust dosing as required. Medications Vancomycin HCl 750 mg/ Sodium (Chloride) 265 mls @ 250 mls/hr IV Q12H FELISHA Vancomycin HCl 2,000 mg/ (Sodium Chloride) 540 mls @ 250 mls/hr IV X1 ONE Stop: 08/17/22 08:39 Last Admin: 08/17/22 06:39 Dose: 250 mls/hr Follow-Up Labs: Trough Vancomycin Labs to be done on [date and time ordered]: 08/18 @ 1234
--- NOTE | 2022-08-17 06:47 | SEPSISATNOTE ---
Sepsis Attestation Sepsis Alert: Yes Sepsis Attestation: Agree w/Sepsis Possible Source of Sepsis: Genitourinary Sepsis Organ Dysfunction Criteria Present: SBP < 90 mmHg or MAP < 65 mmHg and Lactic Acid > 2 mmol/L Fluid Resuscitation Fluid resuscitation indicated?: Yes Sepsis Note Date exam was performed: 08/17/22 Time exam was performed: 06:47 Sepsis Attestation: Sepsis re-evaluation was performed Response to fluids: Non Fluid responsive hypotension and Vasopressors started
--- NOTE | 2022-08-17 07:51 | PN.HOSP_ITS ---
Subjective Subjective Patient is an 82-year-old gentleman resident at an extended care facility who was brought in with hypoxia hypotension and hematuria. Patient was reported to be apneic during the transfer to the emergency department. An assessment of septic shock secondary to acute cystitis made treatment initiated per protocol with IV fluid and broad-spectrum antibiotic therapy transferred to the intensive care unit for subsequent management Objective Data Objective Data Vital Signs: Vital Signs Temp Pulse Resp BP Pulse Ox O2 Del Method O2 Flow Rate 99.9 F H 86 21 H 89/67 L 95 Nasal Cannula 2 08/17/22 07:00 08/17/22 07:00 08/17/22 07:00 08/17/22 07:00 08/17/22 07:00 08/17/22 07:00 08/17/22 06:42 FiO2 2 08/17/22 07:00 Oxygen Flow Rate (L/min) 2 Oxygen Delivery Method Nasal Cannula Weight: 90.3 kg Body Mass Index (BMI) 25.5 Intake & Output: Intake and Output for Last 24 Hours 08/15/22 08/16/22 08/17/22 23:59 23:59 23:59 Intake Total 3050 / 3050 1768.33 / 1768.33 Output Total 360 / 360 Balance 3050 / 3050 1408.33 / 1408.33 Lab / Micro Data Result Diagrams: 08/17/22 04:15 08/17/22 04:15 Labs: Laboratory Results - last 24 hr 08/16/22 20:15: WBC 3.6 L, RBC 4.66, Hgb 13.4, Hct 41.2, MCV 88.4, MCH 28.8, MCHC 32.5, RDW Std Deviation 46.4 H, RDW Coeff of Benjamin 14.5, Plt Count 128 L, MPV 9.7, Immature Gran % (Auto) 0.500, Neut % (Auto) 93.4 H, Lymph % (Auto) 4.4 L, Mckinley % (Auto) 0.3, Eos % (Auto) 1.1, Baso % (Auto) 0.3, Absolute Neuts (auto) 3.4, Absolute Lymphs (auto) 0.16 L, Nucleated RBC % 0, Differential Comment SEE COMMENT, Diff Path Review May foll, Platelet Estimate SLT DEC, RBC Morphology N CHROM, Anisocytosis 1+, Macrocytosis 1+ 08/16/22 20:15: Sodium 142, Potassium 4.0, Chloride 105, Carbon Dioxide 27.0, Anion Gap 10, BUN 23 H, Creatinine 1.22, Estim Creat Clear Calc 45.07, Est GFR (MDRD) Af Amer 73, Est GFR (MDRD) Non-Af 60, BUN/Creatinine Ratio 18.9, Glucose 177 H, Calcium 9.1, Total Bilirubin 0.80, AST 300 H, ALT 131 H, Alkaline Phosphatase 220 H, Troponin I High Sens 15, Total Protein 6.3 L, Albumin 2.6 L, Globulin 3.7, Albumin/Globulin Ratio 0.7 L 08/16/22 20:15: Lactic Acid 7.1 H* 08/16/22 20:25: Urine Color Red, Urine Clarity Turbid, Urine pH 8.0, Ur Specific [place] 1.015, Urine Protein 500 H, Urine Glucose (UA) Normal, Urine Ketones 5 H , Urine Occult Blood 250 H, Urine Nitrite Negative, Urine Bilirubin Negative, Urine Urobilinogen Normal, Ur Leukocyte Esterase 100 H, Urine RBC > 100 SEEN, Urine WBC 50-100 SEEN, Ur Squamous Epith Cells 0 SEEN, Urine Bacteria 3+, Urine Mucus 0 SEEN 08/17/22 00:52: Lactic Acid 4.5 H* 08/17/22 04:15: WBC 28.6 H, RBC 4.06 L, Hgb 11.5 L, Hct 35.7 L, MCV 87.9, MCH 28.3, MCHC 32.2, RDW Std Deviation 46.6 H, RDW Coeff of Benjamin 14.5, Plt Count 103 L, MPV 10.0, Immature Gran % (Auto) GATHERING MACHINE FEEDER, Neut % (Auto) GATHERING MACHINE FEEDER, Lymph % (Auto) GATHERING MACHINE FEEDER, Mckinley % (Auto) GATHERING MACHINE FEEDER, Eos % (Auto) GATHERING MACHINE FEEDER, Baso % (Auto) GATHERING MACHINE FEEDER, Absolute Neuts (auto) 28.3 H, Absolute Lymphs (auto) 0.00 L, Total Counted 100, Neutrophils % (Manual) 70, Band Neutrophils % 16 H, Monocytes % (Manual) 1, Metamyelocytes % 13 H, Nucleated RBC % GATHERING MACHINE FEEDER, Diff Path Review January, Platelet Estimate SLT DEC, RBC Morphology NORM C+C 08/17/22 04:15: Sodium 144, Potassium 3.6, Chloride 112 H, Carbon Dioxide 22.0, Anion Gap 10, BUN 25 H, Creatinine 1.49 H, Estim Creat Clear Calc 42.91, Est GFR (MDRD) Af Amer 58 L, Est GFR (MDRD) Non-Af 48 L, BUN/Creatinine Ratio 16.8, Glucose 116 H, Calcium 7.7 L 08/17/22 04:15: Total Bilirubin 0.90, Direct Bilirubin 0.69 H, AST 335 H, ALT 248 H, Alkaline Phosphatase 187 H, Total Protein 5.1 L, Albumin 2.0 L, Globulin 3.1 Micro: Microbiology 08/16/22 20:30 Blood Culture (Wb) - Left Hand Blood Culture - Preliminary 08/16/22 20:15 Blood Culture (Wb) - Venous Blood Culture - Preliminary 08/16/22 20:25 Nasal Secretion SARS-CoV-2 & FLU Antigen (Rapid) - Final Radiography Diagnostic Testing: Radiology Impression Chest X-Ray 08/16/22 20:43 IMPRESSION: Degenerative changes, as described above. No demonstrated acute cardiopulmonary process. Electronically Signed: Lico Crocker DO at 20:58 EST Reading Location ID and State: [address] [place] [address] Tel [phone], Service support , Gallbladder Ultrasound 08/16/22 21:16 IMPRESSION: 1. Cholelithiasis. No evidence of acute cholecystitis. 2. Simple renal cyst. Follow-up is not indicated per ACR guidelines. Electronically Signed: Elana Lazar MD at 23:11 EST Reading Location ID and State: [id number] / Tel , Service support , Chest X-Ray 08/16/22 23:51 IMPRESSION: 1. Appropriate positioning of the right-sided central venous catheter without evidence for pneumothorax. 2. Cardiomegaly and mild pulmonary congestion. Electronically Signed: Maria Alejandra Lay MD at 0:21 EST , Physical Exam Narrative GENERAL: Patient in no apparent distress HEENT: Atraumatic; normocephalic EYES; Anicteric, Normal Conjunctiva NECK; supple, normal thyroid, RESPIRATORY: Diminished to auscultation CARDIOVASCULAR: Regular S1 S2, GI: soft, normoactive bowel sounds, : No Renal angle tenderness; EXTREMITIES: No edema, no clubbing, MUSCULOSKELETAL: no muscle wasting NEURO: Awake; no lateralizing signs. SKIN: No Rash PSYCH; Flat affect Assessment & Plan Assessment/Plan (1) Acute UTI: (2) Septic shock: PLAN: Plan Patient is an 82-year-old gentleman resident at an extended care facility who was brought in with hypoxia hypotension and hematuria. Patient was reported to be apneic during the transfer to the emergency department. An assessment of septic shock secondary to acute cystitis made treatment initiated per protocol with IV fluid and broad-spectrum antibiotic therapy transferred to the intensive care unit for subsequent manageme 1. Septic shock ? Secondary to acute cystitis. Patient lactic acid on admission was 7.2. Patient did not respond to initial IV fluid resuscitation nurse stating patient being started on Levophed and admitted to the intensive care unit. Patient was placed on broad-spectrum antibiotic therapy after cultures have been sent consult placed to cream separator operator patient seen by Dr. Plaza he is noted recommendations reviewed 2. Essential hypertension ? Patient antihypertensives held in view of patient presenting with septic shock 3. Paroxysmal A. fib ? Rate controlled on systemic anticoagulation with apixaban 4. GERD ? Patient is on PPI 5. BPH Patient is on tamsulosin, held initially in view of patient hypotension resumed 5. Diabetes mellitus type 2 ? Patient is on metformin held please on Accu-Cheks before meals and at bedtime with sliding scale coverage 6. Use of antipsychotics ? Patient is on olanzapine indication not clear he was however continued on admission 7. Thrombocytopenia Present on admission we will continue with monitoring with daily CBC 8. Anemia - Secondary to chronic disorder monitoring H&H and transfuse if patient becomes symptomatic or hemoglobin falls below 7 9. Impaired kidney function ? Baseline creatinine unknown creatinine on admission was 1.22 donnie to 1.49. Continue with IV fluid with subsequent monitoring of electrolyte 10. Acute transaminitis ? Suspected to be secondary to patient septic shock but this is being managed as discussed above with daily LFTs ordered 11. DVT prophylaxis ? Patient is on apixaban Charges/Coding Visit Charges Inpatient E&M: 79339 Subs Hosp L3
[2022-08-17] MEDS: Pantoprazole Sodium 20 MG Tablet PO (08:20)
[2022-08-17] MEDS: OLANZapine 5 MG/TAB TAB.RAPDIS PO (08:20)
[2022-08-17] MEDS: APIXABAN 5 MG TABLET PO ×2 (08:21→22:05)
[2022-08-17 09:55] LABS: M R Staph aureus DNA By PCR Negative (Negative); Probe Check PASS; Specimen Processing Control PASS
[2022-08-17 10:49] LABS: Scan Smear per Review Criteria MANUAL DIFF
[2022-08-17 11:55] LABS: Bedside Glucose 118 mg/dL (74-106)
[2022-08-17] MEDS: Ensure Plus High Protein 120 ML LIQUID PO ×2 (12:24→17:53)
--- NOTE | 2022-08-17 14:17 | CASEMGMT ---
Social Work SW met w/pt and in room. Pt and both state plan will be for pt to return to [facility] at discharge. They declined a SNF list at this time. They are private paying at [facility] at present. Plan will be for pt to return to [facility] when ready. MIKE Roth
[2022-08-17 17:40] LABS: Bedside Glucose 142 mg/dL (74-106)
[2022-08-17 22:15] LABS: Bedside Glucose 130 mg/dL (74-106)
[2022-08-18] VITALS (38 sets, daily range): BP systolic 84–128; BP diastolic 59–92; PULSE 69–152; RESP 13–30; TEMP 36.1–37; O2SAT 94–100
[2022-08-18] MEDS: 0.9% Normal Saline 1,000 ML 150 ML IV ×4 (00:26→21:43)
--- NOTE | 2022-08-18 04:56 | EKG12_ITS ---
Test Reason : RHYTHM CHANGE Blood Pressure : / mmHG Vent. Rate : 159 BPM Atrial Rate : 100 BPM P-R Int : 000 ms QRS Dur : 076 ms QT Int : 324 ms P-R-T Axes : 000 -09 072 degrees QTc Int : 527 ms Atrial fibrillation Low voltage QRS Borderline ECG No previous ECGs available Confirmed by CHAPIN GRULLON, ANGELA ([id number]), medical transcription editor MALICK MORENO ([id number]) on 08/20/2022 8:59:22 AM Referred By: JULIANA Confirmed By:ANGELA SAMSON MD
--- NOTE | 2022-08-18 04:58 | EKG12_ITS ---
Test Reason : RHYTHM CHANGE Blood Pressure : / mmHG Vent. Rate : 154 BPM Atrial Rate : 150 BPM P-R Int : 000 ms QRS Dur : 076 ms QT Int : 296 ms P-R-T Axes : 000 -12 061 degrees QTc Int : 474 ms Atrial fibrillation Low voltage QRS Inferior infarct , age undetermined Abnormal ECG When compared with ECG of 18-AUG-2022 04:56, MANUAL COMPARISON REQUIRED, DATA IS UNCONFIRMED Confirmed by CHAPIN GRULLON, ANGELA ([id number]), industrial editor MALICK MORENO ([id number]) on 08/20/2022 11:06:33 AM Referred By: JULIANA Confirmed By:ANGELA SAMSON MD
[2022-08-18] MEDS: Metoprolol Tartrate 5 MG/5 ML Vial IV (05:15)
--- NOTE | 2022-08-18 05:26 | NURSING ---
Addendum entered by Som Santana 08/18/22 05:39: 0540 150mg amiodarone bolus ordered. Original Note: 0456 pt went into afib rvr with HR in 150s, confirmed with 12 lead EKG. BP 88/71. Dr. Claros notified, order to give 5mg IV lopressor once. 0515 Dr. Claros at bedside. 0530 pt still in afib with HR in 140s.
[2022-08-18 05:56] LABS: Hematocrit 32.3 % (40-54); Hemoglobin 10.7 g/dL (13.0-16.5); Mean Corp Hgb Conc 33.1 g/dL (32-36); Mean Corpuscular Hgb 28.8 pg (27.0-32.0); Mean Corpuscular Volume 86.8 fL (80-94); Mean Platelet Vol. 10.2 fl (6.2-12.0); POSITIVE COUNT YES; POSITIVE DIFFERENTIAL YES; POSITIVE MORPHOLOGY YES; Platelet Count 72 K/mm3 (150-450); RBC Distribution Width CV 14.8 % (11.6-14.6); RBC Distribution Width SD 47.1 fl (35.1-43.9); Red Blood Count 3.72 M/mm3 (4.6-6.2); White Blood Count 26.2 K/mm3 (4.4-11.0)
[2022-08-18 06:04] LABS: Differential Indicated MANUAL DIFF
[2022-08-18 06:10] LABS: Anion Gap 8 (5-15); BUN 28 mg/dL (7-18); BUN/Creat Ratio 25.9 RATIO (10-20); Calcium,Total 7.8 mg/dL (8.5-10.1); Chloride 115 mmol/L (98-107); Creatinine, Serum 1.08 mg/dL (0.70-1.30); EST Glomerular Filtration Rate 69 mL/min (>60); Est Glom Filt Rate - Afr Amer 84 mL/min (>60); Glucose 75 mg/dL (74-106); Magnesium 1.3 mg/dL (1.6-2.6); Phosphorus 2.6 mg/dL (2.5-4.9); Potassium 3.8 mmol/L (3.5-5.1); Sodium Level 145 mmol/L (136-145)
--- NOTE | 2022-08-18 06:35 | PCM.PN.INT ---
Assessment & Plan Assessment/Plan (1) Septic shock: PLAN: Plan RECOMMENDATIONS: 1. Continue empiric broad-spectrum antimicrobials, pending finalized culture results. 2. Continue Eliquis per home regimen. 3. Continue amiodarone and restart home beta-daiana regimen. 4. Replete potassium and magnesium as ordered. 5. Continue Protonix. 6. Encourage incentive spirometer use while in bed and mobilize patient as tolerated. 7. Wean supplemental oxygen to maintain saturations at or above 90%. IMPRESSIONS: 1. Gram-negative septic shock Improved. The patient presented to the hospital with sepsis due to urinary tract source of infection with secondary hematogenous spread, with acute sepsis related organ dysfunction as evidenced by fluid refractory hypotension, lactic acidemia and altered mentation. Although the patient did receive fluid resuscitation, he ultimately required the initiation of vasopressor support to maintain hemodynamic stability. However, he has since been weaned off of Levophed and remains hemodynamically stable at the present time. Preliminary blood cultures are positive for gram-negative rods. The patient will remain on empiric broad-spectrum antimicrobials, pending finalized culture results. 2. Atrial fibrillation with RVR The patient went into A. fib with RVR this morning. He has received an amiodarone bolus and will be continued on infusion therapy. In addition, his baseline outpatient metoprolol regimen will be restarted this morning. I would recommend that we replace his electrolytes to maintain a potassium greater than 4 and magnesium greater than 2. 3. Acute liver injury Improving. Most likely secondary to hemodynamic instability. Recommend continuing to trend liver function profile daily to monitor for improvement. Otherwise, continue current supportive measures including vasopressor support to maintain hemodynamic stability. Avoid hepatotoxic medications. 4. History of hypertension/atrial fibrillation/diabetes mellitus/depression/dementia Complicates care, management, recovery and prognosis. Continue to hold home antihypertensives for now. This note was generated with Merlin dictation software. It may contain incorrect words, spelling, and punctuation that were not noted in checking the note before signing. Subjective Subjective The patient was seen and examined at the bedside this morning. Events from the last 24 hours have been reviewed. The patient is currently afebrile, hemodynamically stable and maintaining appropriate oxygen saturations on 2 L/min via nasal cannula. Early this morning, the patient developed atrial fibrillation with RVR. He was treated with IV beta-blockade and received an amiodarone bolus. His hemodynamic status is currently borderline. White count is elevated at 26,000. Platelet count is low at 72,000. Creatinine is within normal limits. Magnesium is low at 1.3. Objective Data Objective Data The patient's most recent lab work, culture data and imaging studies have all been personally reviewed. Blood and urine culture are both positive for gram-negative rods. Vital Signs: Vital Signs Temp Pulse Resp BP Pulse Ox O2 Del Method O2 Flow Rate 98.4 F 133 H 26 H 92/71 96 Nasal Cannula 2 08/18/22 05:58 08/18/22 05:58 08/18/22 05:58 08/18/22 05:58 08/18/22 05:58 08/18/22 05:58 08/18/22 05:58 FiO2 2 08/17/22 18:00 Oxygen Flow Rate (L/min) 2 Oxygen Delivery Method Nasal Cannula Weight: 210 lb 8.663 oz Body Mass Index (BMI) 25.5 Intake & Output: Intake and Output for Last 24 Hours 08/16/22 08/17/22 08/18/22 23:59 23:59 23:59 Intake Total 3050 / 3050 5381.50 / 5381.50 1361.50 / 1361.50 Output Total 2060 / 2060 700 / 700 Balance 3050 / 3050 3321.50 / 3321.50 661.50 / 661.50 Medical Nutrition Assessment Dietitian: Malnutrition Criteria Met Start: 08/17/22 09:58 Freq: Status: Active Protocol: Document 08/17/22 09:58 RMA (Rec: 08/17/22 09:58 RMA [id number]) Nutrition Malnutrition Evidence of Malnutrition Exists Yes Malnutrition (severe): Chronic Evidenced By Suboptimal Energy Intake ( Severe),Weight Loss (Severe) Clinical Problem Chronic Disease or Condition Related Malnutrition Etiology Severe protein-calorie malnutrition in the context of chronic disease/debility related to inadequate oral intake Signs/Symptoms as evidenced by ~14% wt loss x past 6 months and oral intake meeting less than 50% estimated nutrition needs Status Active Problem Recommendation Dietitian Recommendations/Changes Will continue Regular diet as ordered for now given signs/ symptoms of malnutrition; consistency as per BRIDGES AND BUILDINGS SUPERVISOR. Restrict carbohydrates, fat, sodium as needed once intake adequacy established with meals. Will add 120 ml ensure plus high protein TID w/ medpass. Will add ensure pudding BID w/ lunch and dinner. Lab / Micro Data Attestation: I reviewed the patient's lab results. Result Diagrams: 08/18/22 05:35 08/18/22 05:35 Labs: Laboratory Results - last 24 hr 08/17/22 06:58: MRSA (PCR) Negative 08/17/22 11:33: POC Glucose 118 H 08/17/22 17:20: POC Glucose 142 H 08/17/22 21:55: POC Glucose 130 H 08/18/22 05:35: WBC 26.2 H, RBC 3.72 L, Hgb 10.7 L, Hct 32.3 L, MCV 86.8, MCH 28.8, MCHC 33.1, RDW Std Deviation 47.1 H, RDW Coeff of Benjamin 14.8 H, Plt Count 72 L, MPV 10.2, Neut % (Auto) Not Reportable 08/18/22 05:35: Sodium 145, Potassium 3.8, Chloride 115 H, Carbon Dioxide 22.0, Anion Gap 8, BUN 28 H, Creatinine 1.08, Estim Creat Clear Calc 59.20, Est GFR (MDRD) Af Amer 84, Est GFR (MDRD) Non-Af 69, BUN/Creatinine Ratio 25.9 H, Glucose 75, Calcium 7.8 L, Phosphorus 2.6, Magnesium 1.3 L Micro: Microbiology 08/16/22 20:25 Urine Catheter - Lora Urine Culture - Preliminary GNR lactose seismic prospecting observer helper 08/16/22 20:30 Blood Culture (Wb) - Left Hand Blood Culture - Preliminary 08/16/22 20:15 Blood Culture (Wb) - Venous Blood Culture - Preliminary 08/16/22 20:25 Nasal Secretion SARS-CoV-2 & FLU Antigen (Rapid) - Final Physical Exam Const alert, oriented x3 and no apparent distress General Appearance: cooperative HEENT normocephalic, head/scalp atraumatic and moist oral mucous membranes Eyes PERRL, EOMs intact bilaterally and conjunctivae normal Neck supple Neck Narrative: Right subclavian central venous catheter in place General: trachea midline Chest inspection of chest normal Resp normal respiratory effort Auscultation: Negative for rales, rhonchi or wheezes Cardio S1 normal heart sound and S2 normal heart sound Rate: tachycardic Rhythm: abnormal rhythm GI normal to inspection, nondistended, normoactive bowel sounds Extremity no clubbing, cyanosis or edema Skin no rashes or lesions noted Neuro oriented x3, CN's II-XII intact bilaterally and no focal motor deficits Psych cooperative and affect normal Charges/Coding Visit Charges Inpatient E&M: 78490 Subs Hosp L3
[2022-08-18] MEDS: Amiodarone 360 MG in Dextrose 5% Viaflo Bag 192.8 ML 33.3 MG CONT INF (06:40)
[2022-08-18] MEDS: Potassium Chloride 10mEq/100mL 10 MEQ/100 ML IV.SOLN. 100 MEQ IV BOLUS ×4 (06:58→09:59)
[2022-08-18 07:05] LABS: Lymphocyte 2 % (19-41); Metamyelocyte 9 % (0-1); Monocyte 6 % (0-10); Neutrophil-Band 15 % (0-5); Neutrophil-Segmented 68 % (47-70); Total Cells Counted 100 (MANUAL DIFF)
[2022-08-18 07:06] LABS: Absolute Neutrophil Count 24.1 X10^3/uL (2.0-7.7); Lymphocyte # 0.52 X10^3/ul (0.83-4.51); Neutrophil # 24.07 X10^3/uL (2.7-7.7)
[2022-08-18 07:07] LABS: Absolute Lymphocyte Count 0.52 X10^3/uL (0.83-4.51)
[2022-08-18 07:08] LABS: Platelet Estimate MOD DEC (ADEQ); Red Cell Morphology NORM C+C NORMAL (NORM C&C)
[2022-08-18 07:11] LABS: AST(SGOT) 85 U/L (15-37); Alanine Aminotransfer ALT/SGPT 133 U/L (16-61); Albumin, Serum 1.8 g/dL (3.2-5.0); Alkaline Phosphatase 146 U/L (45-117); Bilirubin, Direct 0.42 mg/dL (0.00-0.30); Globulin 3.4 g/dL (2.2-4.2); Protein, Total 5.2 g/dL (6.4-8.2)
--- NOTE | 2022-08-18 07:19 | PN.HOSP_ITS ---
Subjective Subjective Seen still complains of feeling ill. Blood cultures positive for gram-negative rods, urine cultures also positive for GNR lactose sales service manager final identification and sensitivities pending. Went into A. fib with RVR nurse stating patient being started on amiodarone drip Objective Data Objective Data Vital Signs: Vital Signs Temp Pulse Resp BP Pulse Ox O2 Del Method O2 Flow Rate 98.4 F 138 H 22 H 98/73 97 Nasal Cannula 2 08/18/22 05:58 08/18/22 07:00 08/18/22 07:00 08/18/22 07:00 08/18/22 07:00 08/18/22 07:00 08/18/22 07:00 FiO2 2 08/17/22 18:00 Oxygen Flow Rate (L/min) 2 Oxygen Delivery Method Nasal Cannula Weight: 95.5 kg Body Mass Index (BMI) 25.5 Intake & Output: Intake and Output for Last 24 Hours 08/16/22 08/17/22 08/18/22 23:59 23:59 23:59 Intake Total 3050 / 3050 5381.50 / 5381.50 2361.50 / 2361.50 Output Total 2060 / 2060 700 / 700 Balance 3050 / 3050 3321.50 / 3321.50 1661.50 / 1661.50 Medical Nutrition Assessment Dietitian: Malnutrition Criteria Met Start: 08/17/22 09:58 Freq: Status: Active Protocol: Document 08/17/22 09:58 RMA (Rec: 08/17/22 09:58 RMA [id number]) Nutrition Malnutrition Evidence of Malnutrition Exists Yes Malnutrition (severe): Chronic Evidenced By Suboptimal Energy Intake ( Severe),Weight Loss (Severe) Clinical Problem Chronic Disease or Condition Related Malnutrition Etiology Severe protein-calorie malnutrition in the context of chronic disease/debility related to inadequate oral intake Signs/Symptoms as evidenced by ~14% wt loss x past 6 months and oral intake meeting less than 50% estimated nutrition needs Status Active Problem Recommendation Dietitian Recommendations/Changes Will continue Regular diet as ordered for now given signs/ symptoms of malnutrition; consistency as per SHOE PARTS MOLDER. Restrict carbohydrates, fat, sodium as needed once intake adequacy established with meals. Will add 120 ml ensure plus high protein TID w/ medpass. Will add ensure pudding BID w/ lunch and dinner. Lab / Micro Data Result Diagrams: 08/18/22 05:35 08/18/22 05:35 Labs: Laboratory Results - last 24 hr 08/17/22 06:58: MRSA (PCR) Negative 08/17/22 11:33: POC Glucose 118 H 08/17/22 17:20: POC Glucose 142 H 08/17/22 21:55: POC Glucose 130 H 08/18/22 05:35: WBC 26.2 H, RBC 3.72 L, Hgb 10.7 L, Hct 32.3 L, MCV 86.8, MCH 28.8, MCHC 33.1, RDW Std Deviation 47.1 H, RDW Coeff of Benjamin 14.8 H, Plt Count 72 L, MPV 10.2, Neut % (Auto) Not Reportable, Absolute Neuts (auto) 24.1 H, Absolute Lymphs (auto) 0.52 L, Total Counted 100, Neutrophils % (Manual) 68, Band Neutrophils % 15 H, Lymphocytes % (Manual) 2 L, Monocytes % (Manual) 6, Metamyelocytes % 9 H, Diff Path Review January, Platelet Estimate MOD DEC, RBC Morphology NORM C+C 08/18/22 05:35: Sodium 145, Potassium 3.8, Chloride 115 H, Carbon Dioxide 22.0, Anion Gap 8, BUN 28 H, Creatinine 1.08, Estim Creat Clear Calc 59.20, Est GFR (MDRD) Af Amer 84, Est GFR (MDRD) Non-Af 69, BUN/Creatinine Ratio 25.9 H, Glucose 75, Calcium 7.8 L, Phosphorus 2.6, Magnesium 1.3 L 08/18/22 05:35: Total Bilirubin 0.80, Direct Bilirubin 0.42 H, AST 85 H, ALT 133 H, Alkaline Phosphatase 146 H, Total Protein 5.2 L, Albumin 1.8 L, Globulin 3.4 Micro: Microbiology 08/16/22 20:25 Urine Catheter - Lora Urine Culture - Preliminary GNR lactose sales service manager 08/16/22 20:30 Blood Culture (Wb) - Left Hand Blood Culture - Preliminary 08/16/22 20:15 Blood Culture (Wb) - Venous Blood Culture - Preliminary 08/16/22 20:25 Nasal Secretion SARS-CoV-2 & FLU Antigen (Rapid) - Final Physical Exam Narrative GENERAL: Patient appears ill looking HEENT: Atraumatic; normocephalic EYES; Anicteric, Normal Conjunctiva NECK; supple, normal thyroid, RESPIRATORY: Diminished to auscultation CARDIOVASCULAR: Regular S1 S2, GI: soft, normoactive bowel sounds, : No Renal angle tenderness; EXTREMITIES: No edema, no clubbing, MUSCULOSKELETAL: no muscle wasting NEURO: Awake; no lateralizing signs. SKIN: No Rash PSYCH; Flat affect Assessment & Plan Assessment/Plan (1) Acute UTI: (2) Septic shock: PLAN: Plan Patient is an 82-year-old gentleman resident at an extended care facility who was brought in with hypoxia hypotension and hematuria. Patient was reported to be apneic during the transfer to the emergency department. An assessment of septic shock secondary to acute cystitis made treatment initiated per protocol with IV fluid and broad-spectrum antibiotic therapy transferred to the intensive care unit for subsequent manageme 1. Septic shock ? Secondary to acute cystitis. Patient lactic acid on admission was 7.2. Patient did not respond to initial IV fluid resuscitation nurse stating patient being started on Levophed and admitted to the intensive care unit. Patient was placed on broad-spectrum antibiotic therapy after cultures have been sent consult placed to advance scout patient seen by Dr. Plaza he is noted recommendations reviewed ? 08/18/2022 patient has been weaned off pressors but remains on broad-spectrum antibiotic therapy.. Urine and blood cultures positive for gram-negative rods. Patient MRSA screen came back negative vancomycin discontinued. Patient WBC count remains elevated at 26.2 2. Essential hypertension ? Patient antihypertensives held in view of patient presenting with septic shock 3. Paroxysmal A. fib ? Rate controlled on systemic anticoagulation with apixaban ? 08/18/2022 patient went into A. fib with RVR patient did receive amiodarone bolus and subsequently maintained on amiodarone drip 4. GERD ? Patient is on PPI 5. BPH Patient is on tamsulosin, held initially in view of patient hypotension resumed 5. Diabetes mellitus type 2 ? Patient is on metformin held please on Accu-Cheks before meals and at bedtime with sliding scale coverage 6. Use of antipsychotics ? Patient is on olanzapine indication not clear he was however continued on admission 7. Thrombocytopenia Present on admission we will continue with monitoring with daily CBC 8. Anemia - Secondary to chronic disorder monitoring H&H and transfuse if patient becomes symptomatic or hemoglobin falls below 7 9. Impaired kidney function ? Baseline creatinine unknown creatinine on admission was 1.22 donnie to 1.49. Continue with IV fluid with subsequent monitoring of electrolyte ? 08/18/2022 creatinine 1.08 10. Acute transaminitis ? Suspected to be secondary to patient septic shock but this is being managed as discussed above with daily LFTs ordered 11. DVT prophylaxis ? Patient is on apixaban 12. Physical deconditioning - Requested for PT OT eval and manager social responsibility to assist with discharge planning 13. Hypomagnesemia ? Corrected per protocol repeat labs ordered for a.m. Charges/Coding Visit Charges Inpatient E&M: 54816 Subs Hosp L3
[2022-08-18] MEDS: Magnesium Sulfate 4gm/100mL 4 GM/100 ML IV.SOLN. IV (07:20)
[2022-08-18 07:41] LABS: Bedside Glucose 90 mg/dL (74-106)
[2022-08-18] MEDS: OLANZapine 5 MG/TAB TAB.RAPDIS PO (08:19)
[2022-08-18] MEDS: Metoprolol Tartrate 100 MG Tablet PO ×2 (08:19→21:49)
[2022-08-18] MEDS: APIXABAN 5 MG TABLET PO ×2 (08:19→21:45)
[2022-08-18] MEDS: Pantoprazole Sodium 20 MG Tablet PO (08:19)
[2022-08-18 11:21] LABS: Bedside Glucose 119 mg/dL (74-106)
[2022-08-18] MEDS: Amiodarone 360 MG in Dextrose 5% Viaflo Bag 192.8 ML 16.7 MG CONT INF (12:43)
[2022-08-18 16:30] LABS: Bedside Glucose 76 mg/dL (74-106)
[2022-08-18] MEDS: CHLORHEXIDINE GLUC 2% CLOTH 1 EACH TOWELETTE TOPICAL (22:01)
[2022-08-19] VITALS (25 sets, daily range): BP systolic 96–139; BP diastolic 68–87; PULSE 57–137; RESP 11–24; TEMP 36.5–37.2; O2SAT 93–100
[2022-08-19] MEDS: Amiodarone 360 MG in Dextrose 5% Viaflo Bag 192.8 ML 16.7 MG CONT INF (01:24)
[2022-08-19 04:34] LABS: Absolute Lymphocyte Count 0.63 X10^3/uL (0.83-4.51); Absolute Neutrophil Count 26.3 X10^3/uL (2.0-7.7); Basophil# 0.11 X10^3/uL; Basophil% 0.4 % (0-1); Eosinophil# 0.24 X10^3/uL; Eosinophils% 0.8 % (0-5); Hematocrit 32.6 % (40-54); Hemoglobin 10.8 g/dL (13.0-16.5); Lymphocyte # 0.63 X10^3/ul (0.83-4.51); Lymphocyte % 2.2 % (19-41); Mean Corp Hgb Conc 33.1 g/dL (32-36); Mean Corpuscular Hgb 28.6 pg (27.0-32.0); Mean Corpuscular Volume 86.5 fL (80-94); Mean Platelet Vol. 10.2 fl (6.2-12.0); Monocyte# 0.78 X10^3/uL; Monocyte% 2.8 % (0-10); NRBC Flagged by Analyzer 0 % (0-5); Neutrophil # 26.34 X10^3/uL (2.7-7.7); Neutrophil % 93.2 % (47-70); POSITIVE COUNT YES; POSITIVE DIFFERENTIAL YES; POSITIVE MORPHOLOGY YES; Platelet Count 71 K/mm3 (150-450); RBC Distribution Width SD 48.3 fl (35.1-43.9); Red Blood Count 3.77 M/mm3 (4.6-6.2); White Blood Count 28.3 K/mm3 (4.4-11.0)
[2022-08-19 04:43] LABS: Differential Indicated SCAN CRITERIA MET
[2022-08-19 04:56] LABS: Anisocytosis 1+; Platelet Estimate MOD DEC (ADEQ)
[2022-08-19 05:04] LABS: ALB/GLOB Ratio 0.5 RATIO (0.9-2.4); AST(SGOT) 48 U/L (15-37); Alanine Aminotransfer ALT/SGPT 96 U/L (16-61); Albumin, Serum 1.7 g/dL (3.2-5.0); Alkaline Phosphatase 194 U/L (45-117); Anion Gap 5 (5-15); BUN 21 mg/dL (7-18); BUN/Creat Ratio 25.6 RATIO (10-20); Calcium,Total 8.4 mg/dL (8.5-10.1); Chloride 114 mmol/L (98-107); Creatinine, Serum 0.82 mg/dL (0.70-1.30); EST Glomerular Filtration Rate 95 mL/min (>60); Est Glom Filt Rate - Afr Amer 115 mL/min (>60); Estimated Creatinine Clearance 77.97 ml/min; Globulin 3.6 g/dL (2.2-4.2); Glucose 97 mg/dL (74-106); Potassium 3.9 mmol/L (3.5-5.1); Protein, Total 5.3 g/dL (6.4-8.2); Sodium Level 142 mmol/L (136-145)
[2022-08-19] MEDS: 0.9% Normal Saline 1,000 ML 150 ML IV (05:09)
[2022-08-19] MEDS: 0.9% Saline Lock 10 ML Syringe IV ×2 (06:32→22:44)
[2022-08-19] MEDS: Furosemide 40 MG/4 ML Vial IV (06:32)
[2022-08-19 06:45] LABS: Bedside Glucose 113 mg/dL (74-106)
--- NOTE | 2022-08-19 07:12 | PCM.PN.INT ---
Assessment & Plan Assessment/Plan (1) Septic shock: PLAN: Plan RECOMMENDATIONS: 1. Narrow antibiotic spectrum 2. Continue Eliquis per home regimen. 3. Continue amiodarone and beta-daiana. Transition to p.o. amiodarone for tomorrow 4. Replete potassium and magnesium as needed. 5. Continue Protonix. 6. Encourage incentive spirometer use while in bed and mobilize patient as tolerated. 7. Wean supplemental oxygen to maintain saturations at or above 90%. Lasix challenge 8. Okay to leave the intensive care unit IMPRESSIONS: 1. Pluralibacter gergoviae septic shock Improved. The patient presented to the hospital with sepsis due to urinary tract source of infection with secondary hematogenous spread, with acute sepsis related organ dysfunction as evidenced by fluid refractory hypotension, lactic acidemia and altered mentation. Patient's urine and blood are showing an odd organism, but it appears to be sensitive to penicillin. We will narrow antibiotic spectrum. Patient is off of pressors, but significantly fluid positive. Will discontinue IV fluids and challenge with Lasix. 2. Atrial fibrillation with RVR The patient went into A. fib with RVR yesterday, but did respond to amiodarone bolus and drip. Likely okay to transition to p.o. amiodarone tomorrow with discontinuation of the drip when current bag is finished. Baseline metoprolol has also been reinitiated and patient is currently in sinus rhythm. Patient is anticoagulated with Eliquis therapy. 3. Acute liver injury Improving. Most likely secondary to hemodynamic instability. Recommend continuing to trend liver function profile daily to monitor for improvement. Otherwise, continue current supportive measures including vasopressor support to maintain hemodynamic stability. Avoid hepatotoxic medications. 4. History of hypertension/atrial fibrillation/diabetes mellitus/depression/dementia Complicates care, management, recovery and prognosis. Continue to hold home antihypertensives for now. This note was generated with [employer] dictation software. It may contain incorrect words, spelling, and punctuation that were not noted in checking the note before signing. Subjective Subjective Patient did okay overnight. No acute issues were reported. Patient has called out intermittently and is described as pleasantly confused by nursing. Patient did have a bowel movement this morning that was described as more normal. Objective Data Objective Data Vital Signs: Vital Signs Temp Pulse Resp BP Pulse Ox O2 Del Method O2 Flow Rate 36.8 C 74 16 112/74 98 Nasal Cannula 2 08/19/22 04:00 08/19/22 06:00 08/19/22 06:00 08/19/22 06:00 08/19/22 06:00 08/19/22 06:00 08/19/22 06:00 FiO2 2 08/17/22 18:00 Oxygen Flow Rate (L/min) 2 Oxygen Delivery Method Nasal Cannula Weight: 98.2 kg Body Mass Index (BMI) 25.5 Intake & Output: Intake and Output for Last 24 Hours 08/17/22 08/18/22 08/19/22 23:59 23:59 23:59 Intake Total 5381.50 / 5381.50 5799.83 / 5799.83 1542.5 / 1542.5 Output Total 2059 / 2059 2900 / 3100 675 / 675 Balance 3321.50 / 3321.50 2899.83 / 2699.83 867.5 / 867.5 Medical Nutrition Assessment Dietitian: Malnutrition Criteria Met Start: 08/17/22 09:58 Freq: Status: Active Protocol: Document 08/17/22 09:58 RMA (Rec: 08/17/22 09:58 RMA [id number]) Nutrition Malnutrition Evidence of Malnutrition Exists Yes Malnutrition (severe): Chronic Evidenced By Suboptimal Energy Intake ( Severe),Weight Loss (Severe) Clinical Problem Chronic Disease or Condition Related Malnutrition Etiology Severe protein-calorie malnutrition in the context of chronic disease/debility related to inadequate oral intake Signs/Symptoms as evidenced by ~14% wt loss x past 6 months and oral intake meeting less than 50% estimated nutrition needs Status Active Problem Recommendation Dietitian Recommendations/Changes Will continue Regular diet as ordered for now given signs/ symptoms of malnutrition; consistency as per SUPERVISOR LOADING. Restrict carbohydrates, fat, sodium as needed once intake adequacy established with meals. Will add 120 ml ensure plus high protein TID w/ medpass. Will add ensure pudding BID w/ lunch and dinner. Lab / Micro Data Attestation: I reviewed the patient's lab results. Result Diagrams: 08/19/22 04:20 08/19/22 04:20 Labs: Laboratory Results - last 24 hr 08/18/22 07:23: POC Glucose 90 08/18/22 11:01: POC Glucose 119 H 08/18/22 16:02: POC Glucose 76 08/18/22 21:31: POC Glucose 113 H 08/19/22 04:20: WBC 28.3 H, RBC 3.77 L, Hgb 10.8 L, Hct 32.6 L, MCV 86.5, MCH 28.6, MCHC 33.1, RDW Std Deviation 48.3 H, RDW Coeff of Benjamin 15.0 H, Plt Count 71 L, MPV 10.2, Immature Gran % (Auto) 0.600, Neut % (Auto) 93.2 H, Lymph % (Auto) 2.2 L, [place] % (Auto) 2.8, Eos % (Auto) 0.8, Baso % (Auto) 0.4, Absolute Neuts (auto) 26.3 H, Absolute Lymphs (auto) 0.63 L, Nucleated RBC % 0, Platelet Estimate MOD DEC, Anisocytosis 1+ 08/19/22 04:20: Sodium 142, Potassium 3.9, Chloride 114 H, Carbon Dioxide 23.0, Anion Gap 5, BUN 21 H, Creatinine 0.82, Estim Creat Clear Calc 77.97, Est GFR (MDRD) Af Amer 115, Est GFR (MDRD) Non-Af 95, BUN/Creatinine Ratio 25.6 H, Glucose 97, Calcium 8.4 L, Total Bilirubin 0.60, AST 48 H, ALT 96 H, Alkaline Phosphatase 194 H, Total Protein 5.3 L, Albumin 1.7 L, Globulin 3.6, Albumin/Globulin Ratio 0.5 L Micro: Microbiology 08/16/22 20:25 Urine Catheter - Lora Urine Culture - Final Pluralibacter gergoviae 08/16/22 20:30 Blood Culture (Wb) - Left Hand Blood Culture - Preliminary 08/16/22 20:15 Blood Culture (Wb) - Venous Blood Culture - Preliminary 08/16/22 20:25 Nasal Secretion SARS-CoV-2 & FLU Antigen (Rapid) - Final Rhythm Strip Rhythm Strip: Sinus Rhythm Rate: 63 Ectopy: - (Occasional bigeminy noted) Physical Exam Const alert and no apparent distress Constitutional Narrative: Oriented to self General Appearance: cooperative HEENT normocephalic, head/scalp atraumatic and moist oral mucous membranes Eyes PERRL, EOMs intact bilaterally and conjunctivae normal Neck supple Neck Narrative: Right subclavian central venous catheter in place. Clean, dry and intact General: trachea midline Chest inspection of chest normal Resp normal respiratory effort Resp Narrative: Fair effort. Sleeping during my evaluation. Auscultation: diminished lung sounds; Negative for rales, rhonchi or wheezes Cardio regular rate, regular rhythm, S1 normal heart sound, S2 normal heart sound and no murmurs GI normal to inspection, nondistended, normoactive bowel sounds Extremity General Extremity: edema Skin no rashes or lesions noted Neuro CN's II-XII intact bilaterally, moves all extremities and no focal motor deficits Psych affect normal Psych Narrative: Impulsive Charges/Coding Visit Charges Inpatient E&M: 41309 Subs Hosp L3
--- NOTE | 2022-08-19 07:19 | PN.HOSP_ITS ---
Subjective Subjective Feels well. Objective Data Objective Data Vital Signs: Vital Signs Temp Pulse Resp BP Pulse Ox O2 Del Method O2 Flow Rate 36.8 C 74 16 112/74 98 Nasal Cannula 2 08/19/22 04:00 08/19/22 06:00 08/19/22 06:00 08/19/22 06:00 08/19/22 06:00 08/19/22 06:00 08/19/22 06:00 FiO2 2 08/17/22 18:00 Oxygen Flow Rate (L/min) 2 Oxygen Delivery Method Nasal Cannula Weight: 98.2 kg Body Mass Index (BMI) 25.5 Intake & Output: Intake and Output for Last 24 Hours 08/17/22 08/18/22 08/19/22 23:59 23:59 23:59 Intake Total 5381.50 / 5381.50 5799.83 / 5799.83 1542.5 / 1542.5 Output Total 0 / 0 2900 / 3100 675 / 675 Balance 3321.50 / 3321.50 2899.83 / 2699.83 867.5 / 867.5 Medical Nutrition Assessment Dietitian: Malnutrition Criteria Met Start: 08/17/22 09:58 Freq: Status: Active Protocol: Document 08/17/22 09:58 RMA (Rec: 08/17/22 09:58 RMA [id number]) Nutrition Malnutrition Evidence of Malnutrition Exists Yes Malnutrition (severe): Chronic Evidenced By Suboptimal Energy Intake ( Severe),Weight Loss (Severe) Clinical Problem Chronic Disease or Condition Related Malnutrition Etiology Severe protein-calorie malnutrition in the context of chronic disease/debility related to inadequate oral intake Signs/Symptoms as evidenced by ~14% wt loss x past 6 months and oral intake meeting less than 50% estimated nutrition needs Status Active Problem Recommendation Dietitian Recommendations/Changes Will continue Regular diet as ordered for now given signs/ symptoms of malnutrition; consistency as per MANUFACTURING SHIFT SUPERVISOR. Restrict carbohydrates, fat, sodium as needed once intake adequacy established with meals. Will add 120 ml ensure plus high protein TID w/ medpass. Will add ensure pudding BID w/ lunch and dinner. Lab / Micro Data Result Diagrams: 08/19/22 04:20 08/19/22 04:20 Labs: Laboratory Results - last 24 hr 08/18/22 07:23: POC Glucose 90 08/18/22 11:01: POC Glucose 119 H 08/18/22 16:02: POC Glucose 76 08/18/22 21:31: POC Glucose 113 H 08/19/22 04:20: WBC 28.3 H, RBC 3.77 L, Hgb 10.8 L, Hct 32.6 L, MCV 86.5, MCH 28.6, MCHC 33.1, RDW Std Deviation 48.3 H, RDW Coeff of Benjamin 15.0 H, Plt Count 71 L, MPV 10.2, Immature Gran % (Auto) 0.600, Neut % (Auto) 93.2 H, Lymph % (Auto) 2.2 L, [place] % (Auto) 2.8, Eos % (Auto) 0.8, Baso % (Auto) 0.4, Absolute Neuts (auto) 26.3 H, Absolute Lymphs (auto) 0.63 L, Nucleated RBC % 0, Platelet Estimate MOD DEC, Anisocytosis 1+ 08/19/22 04:20: Sodium 142, Potassium 3.9, Chloride 114 H, Carbon Dioxide 23.0, Anion Gap 5, BUN 21 H, Creatinine 0.82, Estim Creat Clear Calc 77.97, Est GFR (MDRD) Af Amer 115, Est GFR (MDRD) Non-Af 95, BUN/Creatinine Ratio 25.6 H, Glucose 97, Calcium 8.4 L, Total Bilirubin 0.60, AST 48 H, ALT 96 H, Alkaline Phosphatase 194 H, Total Protein 5.3 L, Albumin 1.7 L, Globulin 3.6, Albumin/Globulin Ratio 0.5 L Micro: Microbiology 08/16/22 20:25 Urine Catheter - Lora Urine Culture - Final Pluralibacter gergoviae 08/16/22 20:30 Blood Culture (Wb) - Left Hand Blood Culture - Preliminary 08/16/22 20:15 Blood Culture (Wb) - Venous Blood Culture - Preliminary 08/16/22 20:25 Nasal Secretion SARS-CoV-2 & FLU Antigen (Rapid) - Final Rhythm Strip Rhythm Strip: Sinus Rhythm Rate: 63 Ectopy: - Physical Exam Const alert and no apparent distress Neck no lymphadenopathy Resp normal respiratory effort, no retractions, no use of accessory muscles and clear to auscultation bilaterally Cardio regular rate, regular rhythm, S1 normal heart sound and S2 normal heart sound GI normal to inspection, nondistended, normoactive bowel sounds, soft to palpation, non-tender and non-distended Assessment & Plan Assessment/Plan (1) Septic shock: PLAN: POA 2/2 GNR UTI and bacteremia Failed response with IVF and was subsequently placed on norepinephrine gtt, subsequently discontinued Follow up cultures pip/tazo and vanc now changed over to cefazolin (2) Acute UTI: PLAN: UCx growing out Pluralibacter gerogoviae (a GNR) now on cefazolin (3) Bacteremia: PLAN: GNR thus far. Likely organism same as #2. Follow up cultures (4) Paroxysmal atrial fibrillation with RVR: PLAN: resolved. now off amiodarone gtt and on metoprolol tartrate 100 BID anticoagulated with apixaban. no echo in [facility]. Will check (5) Transaminitis: PLAN: 2/2 shock trending down. (6) LADONNA (acute kidney injury): PLAN: resolved Creatinine 1.49, now down to 0.82 2/2 shock +/- dehydration (7) Thrombocytopenia: PLAN: may be 2/2 to septic shock stable last 2 days monitor (8) Anemia: PLAN: maybe hemodilutional monitor no need for TF PLAN: Plan Patient is an 82-year-old gentleman resident at an extended care facility who was brought in with hypoxia hypotension and hematuria. Patient was reported to be apneic during the transfer to the emergency department. An assessment of septic shock secondary to acute cystitis made treatment initiated per protocol with IV fluid and broad-spectrum antibiotic therapy transferred to the intensive care unit for subsequent manageme Chronic conditions: * Essential hypertension: Patient antihypertensives held in view of patient presenting with septic shock * GERD: patient is on PPI * BPH: patient is on tamsulosin, held initially in view of patient hypotension resumed * Diabetes mellitus type 2: Fair control. Patient is on metformin held please on Accu-Cheks before meals and at bedtime with sliding scale coverage * Use of antipsychotics? Patient is on olanzapine indication not clear he was however continued on admission DVT prophylaxis ? Patient is on apixaban Physical deconditioning - Requested for PT OT eval and social services coordinator to assist with discharge planning Charges/Coding Visit Charges Inpatient E&M: 15196 Subs Hosp L2
[2022-08-19] MEDS: Pantoprazole Sodium 20 MG Tablet PO (08:04)
[2022-08-19] MEDS: Ensure Plus High Protein 120 ML LIQUID PO ×3 (08:04→16:28)
[2022-08-19] MEDS: OLANZapine 5 MG/TAB TAB.RAPDIS PO (08:04)
[2022-08-19] MEDS: APIXABAN 5 MG TABLET PO ×2 (08:04→22:44)
[2022-08-19] MEDS: Cefazolin 1 GM/50 ML BAG IV ×3 (08:05→22:44)
[2022-08-19] MEDS: Metoprolol Tartrate 100 MG Tablet PO ×2 (08:05→22:43)
--- NOTE | 2022-08-19 08:52 | ECHOCS_ITS ---
Reason For Study: AFIB Procedure This was a 2D Doppler, Color Flow transthoracic echocardiogram. Technically difficult study due to patients breathing. Exam performed portable in ICU/CCU. Left Ventricle Normal LV size. Left ventricular systolic function is normal. The estimated ejection fraction is 55 %. No regional wall motion abnormalities noted. Right Ventricle Normal RV size. Normal systolic function. Atria Normal left atrium. Normal right atrium. Mitral Valve Normal mitral valve. Tricuspid Valve The tricuspid valve is not well visualized. Aortic Valve The aortic valve is not well visualized. Pulmonic Valve The pulmonic valve is not well visualized. Great Vessels Normal aortic root. Pericardium/Pleural No pericardial effusion. MMode/2D Measurements & Calculations LVIDd: 4.3 cm IVSd: 1.5 cm LA dimension(2D): 3.4 cm LVIDs: 3.5 cm LVPWd: 1.2 cm FS: 18.4 % Time Measurements MV dec time: 0.10 sec Doppler Measurements & Calculations MV E max eze: 29.9 cm/sec Lat Peak E' Eze: 13.6 cm/sec Med Peak E' Eze: 8.2 cm/sec MV A max eze: 39.6 cm/sec E/E' lat: 2.2 E/E' med: 3.7 MV E/A: 0.76 MV V2 max: 52.6 cm/sec Ao V2 max: 102.9 cm/sec MV max P.1 mmHg MV dec slope: 815.0 cm/sec2 Ao max P.4 mmHg MV V2 mean: 36.5 cm/sec Ao V2 mean: 71.1 cm/sec MV mean P.59 mmHg Ao mean P.3 mmHg MV V2 VTI: 16.6 cm Ao V2 VTI: 19.4 cm LV V1 max: 101.4 cm/sec PA V2 max: 80.6 cm/sec LV V1 max P.1 mmHg PA V2 mean: 57.5 cm/sec LV V1 mean P.1 mmHg LV V1 mean: 67.4 cm/sec LV V1 VTI: 24.5 cm ECHO/Echo Complete W/ Contrast Interpretation Summary Normal LV size. Left ventricular systolic function is normal. The estimated ejection fraction is 55 %. Ordering Physician: Vick Warner Referring Physician: Jared Silverman Performed By: Aidee Porter RCS
--- NOTE | 2022-08-19 10:21 | CASEMGMT ---
Discharge Station Engineer Main Line This fiction writer sent over updates on patient to [facility] via [facility]. Jose BRIGGS Scientific Software Developer
--- NOTE | 2022-08-19 10:32 | CASEMGMT ---
Social Work Pt is a current resident at [facility]. Message left for Pearl at [facility] to discuss return. abebe Go/chanda customer care assistant updated and to send clinicals via [facility]. SW will await return call from [facility]. ARNOLDO Lynch
[2022-08-19 11:25] LABS: Bedside Glucose 128 mg/dL (74-106)
--- NOTE | 2022-08-19 14:21 | CASEMGMT ---
Patient's asked for SW. SW met with patient's . Introduced self and role at [facility]. Patient's said patient has a court hearing on Friday and his estate planning attorney was going to come in do a virtual hearing. Patient's asked if this would be a problem. KYA let her know that would be fine if patient is still here at [facility] on Fri. Plan: d/c back to [place] possibly under skilled level of care pending insurance approval. Emerald Moran NEIGHBORHOOD WORKERIsadora ALVA
--- NOTE | 2022-08-19 15:19 | CHAPLAIN ---
Type of Pastoral Visit _x__ Initial Visit ___ Follow-up Visit ___ On-call Visit ___ General Patient Visit ___ Spiritual Assessment ___ Family Conference ___ Bereavement ___ Rapid Response ___ Code Blue ___ Other (describe below) Pastoral Care Referral From _x__ Patient ___ Family ___ Nurse ___ Physician ___ Clinical Data Abstractor ___ Grip ___ Other (describe below) Sacrament/Intervention _x__ Active listening ___ Anointing ___ Mandaen ___ Bereavement ___ Communion ___ Dayanara exploration ___ ___ Life review _x__ Prayer ___ Reconciliation ___ Sacrament of Sick _x__ Supportive presence ___ Wedding ___ Other (describe below) Pastoral Comments patient reviews his health and living situation; pt identifies himself as Anabaptist but open to spiritual care from this radarman; pt speaks of feeling better with hopes of leaving hospital; pt has a spouse; prayer welcomed
[2022-08-19] MEDS: Insulin Lispro 100 UNIT/ML INSULN.PEN SC (16:28)
[2022-08-19 16:55] LABS: Bedside Glucose 170 mg/dL (74-106)
[2022-08-20] VITALS (16 sets, daily range): BP systolic 129–162; BP diastolic 65–101; PULSE 62–109; RESP 18; TEMP 36.4–36.8; O2SAT 92–96
[2022-08-20 00:15] LABS: Bedside Glucose 139 mg/dL (74-106)
[2022-08-20] MEDS: 0.9% Saline Lock 10 ML Syringe IV (06:21)
[2022-08-20] MEDS: Cefazolin 1 GM/50 ML BAG IV ×3 (06:21→22:12)
[2022-08-20 06:34] LABS: Absolute Lymphocyte Count 0.72 X10^3/uL (0.83-4.51); Absolute Neutrophil Count 15.9 X10^3/uL (2.0-7.7); Basophil# 0.05 X10^3/uL; Basophil% 0.3 % (0-1); Eosinophil# 0.44 X10^3/uL; Eosinophils% 2.5 % (0-5); Hematocrit 34.5 % (40-54); Hemoglobin 11.6 g/dL (13.0-16.5); Lymphocyte # 0.72 X10^3/ul (0.83-4.51); Mean Corp Hgb Conc 33.6 g/dL (32-36); Mean Corpuscular Hgb 28.6 pg (27.0-32.0); Mean Corpuscular Volume 85.2 fL (80-94); Monocyte# 0.62 X10^3/uL; Monocyte% 3.5 % (0-10); NRBC Flagged by Analyzer 0 % (0-5); Neutrophil # 15.88 X10^3/uL (2.7-7.7); POSITIVE COUNT YES; Platelet Count 88 K/mm3 (150-450); RBC Distribution Width CV 15.1 % (11.6-14.6); RBC Distribution Width SD 46.7 fl (35.1-43.9); Red Blood Count 4.05 M/mm3 (4.6-6.2); White Blood Count 17.8 K/mm3 (4.4-11.0)
[2022-08-20 06:44] LABS: Anion Gap 5 (5-15); BUN 17 mg/dL (7-18); Chloride 112 mmol/L (98-107); Creatinine, Serum 0.85 mg/dL (0.70-1.30); EST Glomerular Filtration Rate 91 mL/min (>60); Est Glom Filt Rate - Afr Amer 110 mL/min (>60); Estimated Creatinine Clearance 75.22 ml/min; Glucose 120 mg/dL (74-106); Sodium Level 144 mmol/L (136-145)
[2022-08-20 06:55] LABS: Bedside Glucose 112 mg/dL (74-106)
[2022-08-20] MEDS: Ensure Plus High Protein 120 ML LIQUID PO ×3 (07:53→16:41)
[2022-08-20] MEDS: Pantoprazole Sodium 20 MG Tablet PO (07:53)
[2022-08-20] MEDS: Metoprolol Tartrate 100 MG Tablet PO ×2 (07:53→22:18)
[2022-08-20] MEDS: Amiodarone 200 MG Tablet PO (07:53)
--- NOTE | 2022-08-20 08:18 | PN.HOSP_ITS ---
Subjective Subjective Feeling depressed. States there is concerns about finances. Resent medications being expensive. Objective Data Objective Data Vital Signs: Vital Signs Temp Pulse Resp BP Pulse Ox O2 Del Method O2 Flow Rate 36.8 C 87 18 138/94 H 94 Room Air 2 08/20/22 07:44 08/20/22 07:53 08/20/22 07:44 08/20/22 07:44 08/20/22 07:44 08/20/22 07:44 08/19/22 12:00 FiO2 2 08/19/22 13:00 Oxygen Flow Rate (L/min) 2 Oxygen Delivery Method Room Air Weight: 92.9 kg Body Mass Index (BMI) 25.5 Intake & Output: Intake and Output for Last 24 Hours 08/18/22 08/19/22 08/20/22 23:59 23:59 23:59 Intake Total 5799.83 / 5799.83 2182.5 / 2182.5 50 / 50 Output Total 2900 / 3100 6175 / 6575 1400 / 1400 Balance 2899.83 / 2699.83 -3992.5 / -4392.5 -1350 / -1350 Medical Nutrition Assessment Dietitian: Malnutrition Criteria Met Start: 08/17/22 09:58 Freq: Status: Active Protocol: Document 08/19/22 10:22 NORMA (Rec: 08/19/22 10:22 NORMA [id number]) Nutrition Malnutrition Evidence of Malnutrition Exists Yes Malnutrition (severe): Chronic Evidenced By Suboptimal Energy Intake ( Severe),Weight Loss (Severe) Clinical Problem Chronic Disease or Condition Related Malnutrition Etiology Severe protein-calorie malnutrition in the context of chronic disease/debility related to inadequate oral intake Signs/Symptoms as evidenced by ~14% wt loss x past 6 months cryptanalyst and oral intake meeting less than 50% estimated nutrition needs Status Active Problem Recommendation Dietitian Recommendations/Changes Will continue Regular diet as ordered for now given signs/ symptoms of malnutrition; consistency as per TELEVISION NEWS VIDEO EDITOR. Restrict carbohydrates, fat, sodium as needed once intake adequacy established with meals. Will continue 120 ml ensure plus high protein TID w/ medpass. Will continue ensure pudding BID w/ lunch and dinner. Lab / Micro Data Result Diagrams: 08/20/22 06:21 08/20/22 06:21 Labs: Laboratory Results - last 24 hr 08/19/22 10:56: POC Glucose 128 H 08/19/22 16:25: POC Glucose 170 H 08/19/22 22:42: POC Glucose 139 H 08/20/22 06:21: WBC 17.8 H, RBC 4.05 L, Hgb 11.6 L, Hct 34.5 L, MCV 85.2, MCH 28.6, MCHC 33.6, RDW Std Deviation 46.7 H, RDW Coeff of Benjamin 15.1 H, Plt Count 88 L, MPV 10.0, Immature Gran % (Auto) 0.700, Neut % (Auto) 89.0 H, Lymph % (Auto) 4.0 L, [place] % (Auto) 3.5, Eos % (Auto) 2.5, Baso % (Auto) 0.3, Absolute Neuts (auto) 15.9 H, Absolute Lymphs (auto) 0.72 L, Nucleated RBC % 0 08/20/22 06:21: Sodium 144, Potassium 3.0 L, Chloride 112 H, Carbon Dioxide 27.0, Anion Gap 5, BUN 17, Creatinine 0.85, Estim Creat Clear Calc 75.22, Est GFR (MDRD) Af Amer 110, Est GFR (MDRD) Non-Af 91, BUN/Creatinine Ratio 20.0, Glucose 120 H, Calcium 9.0 08/20/22 06:23: POC Glucose 112 H Micro: Microbiology 08/16/22 20:30 Blood Culture (Wb) - Left Hand Blood Culture - Final GNR lactose senior data quality analyst 08/16/22 20:15 Blood Culture (Wb) - Venous Blood Culture - Final Pluralibacter gergoviae 08/16/22 20:25 Urine Catheter - Lora Urine Culture - Final Pluralibacter gergoviae 08/16/22 20:25 Nasal Secretion SARS-CoV-2 & FLU Antigen (Rapid) - Final Radiography Diagnostic Testing: Radiology Impression Echocardiogram 08/19/22 08:52 Interpretation Summary Normal LV size. Left ventricular systolic function is normal. The estimated ejection fraction is 55 %. Ordering Physician: Vick Warner Referring Physician: Jared Silverman Performed By: Aidee Porter RCS Rhythm Strip Rhythm Strip: Sinus Rhythm Rate: 63 Ectopy: - (Occasional bigeminy noted) Physical Exam Const alert and no apparent distress Resp normal respiratory effort, no retractions, no use of accessory muscles and clear to auscultation bilaterally Cardio regular rate, regular rhythm, S1 normal heart sound and S2 normal heart sound GI normal to inspection, nondistended, normoactive bowel sounds and soft to palpation Psych affect normal Assessment & Plan Assessment/Plan (1) Septic shock: PLAN: POA 2/2 GNR UTI and bacteremia Failed response with IVF and was subsequently placed on norepinephrine gtt, subsequently discontinued Follow up cultures pip/tazo and vanc now changed over to cefazolin (2) Acute UTI: PLAN: UCx growing out Pluralibacter gerogoviae (a GNR) now on cefazolin (3) Bacteremia: PLAN: Pluralibacter gerogoviae Continue cefazolin (4) Paroxysmal atrial fibrillation with RVR: PLAN: resolved. now off amiodarone gtt and on metoprolol tartrate 100 BID anticoagulated with apixaban. Echo shows an EF of 55%. LV systolic function normal. (5) Transaminitis: PLAN: 2/2 shock trending down. (6) LADONNA (acute kidney injury): PLAN: resolved Creatinine 1.49, now down to 0.82 2/2 shock +/- dehydration (7) Thrombocytopenia: PLAN: may be 2/2 to septic shock Slightly up. monitor (8) Anemia: PLAN: maybe hemodilutional monitor no need for TF PLAN: Plan Patient is an 82-year-old gentleman resident at an extended care facility who was brought in with hypoxia hypotension and hematuria. Patient was reported to be apneic during the transfer to the emergency department. An assessment of septic shock secondary to acute cystitis made treatment initiated per protocol with IV fluid and broad-spectrum antibiotic therapy transferred to the intensive care unit for subsequent manageme Chronic conditions: * Essential hypertension: Patient antihypertensives held in view of patient presenting with septic shock * GERD: patient is on PPI * BPH: patient is on tamsulosin, held initially in view of patient hypotension resumed * Diabetes mellitus type 2: Fair control. Patient is on metformin held please on Accu-Cheks before meals and at bedtime with sliding scale coverage * Use of antipsychotics? Patient is on olanzapine indication not clear he was however continued on admission DVT prophylaxis ? Patient is on apixaban Physical deconditioning - Requested for PT OT eval and social service liaison to assist with discharge planning Charges/Coding Visit Charges Inpatient E&M: 25157 Subs Hosp L2
[2022-08-20] MEDS: OLANZapine 5 MG/TAB TAB.RAPDIS PO (09:12)
[2022-08-20] MEDS: APIXABAN 5 MG TABLET PO ×2 (09:12→22:18)
--- NOTE | 2022-08-20 09:44 | CASEMGMT ---
Addendum entered by Abbi Tellez 08/20/22 09:51: [facility] reached out. Patient needs pre-cert. [facility] will start pre-cert today. KYA Corbin notified. Original Note: Discharge Vet Tech This marketing copywriter called [facility] to find out if patient can go to the facility and the facility gets pre-cert since patient is private pay or if we need pre-cert before he comes back. All admissions at [facility] are in a meeting. This marketing copywriter sent a message in [facility] as well. Jose BRIGGS Public Relations Specialist
[2022-08-20] MEDS: Potassium Chloride Oral Tablet 20 MEQ 40 MEQ PO (11:35)
[2022-08-20 11:40] LABS: Bedside Glucose 120 mg/dL (74-106)
--- NOTE | 2022-08-20 14:05 | PN.CC_ITS ---
Assessment & Plan Assessment/Plan (1) Septic shock: PLAN: Plan RECOMMENDATIONS: 1. Complete 10 days of antibiotics 2. Continue Eliquis per home regimen. 3. Continue p.o. amiodarone and beta-daiana 4. Replete potassium and magnesium as needed. 5. Continue Protonix. 6. Encourage incentive spirometer use while in bed and mobilize patient as tolerated. 7. Wean supplemental oxygen to maintain saturations at or above 90%. Check walking oximetry prior to discharge 8. Okay to discharge from my perspective 9. Diuresis patient is unable to ambulate on room air 10. Hemodynamically stable on room air. Will sign off from a critical care perspective IMPRESSIONS: 1. Pluralibacter gergoviae septic shock Improved. The patient presented to the hospital with sepsis due to urinary tract source of infection with secondary hematogenous spread, with acute sepsis related organ dysfunction as evidenced by fluid refractory hypotension, lactic acidemia and altered mentation. Patient's urine and blood are showing an odd organism, but it appears to be sensitive to penicillin. Patient will likely need 10 days of antibiotics given bacteremia. Patient is off of pressors, but significantly fluid positive. Will discontinue IV fluids and challenge with Lasix. 2. Atrial fibrillation with RVR The patient went into A. fib with RVR yesterday, but did respond to amiodarone bolus and drip. Transition to p.o. amiodarone. This can be continued as a baseline medication. Baseline metoprolol has also been reinitiated and patient is currently in sinus rhythm. Patient is anticoagulated with Eliquis therapy. 3. Acute liver injury Improving. Most likely secondary to hemodynamic instability. Recommend continuing to trend liver function profile daily to monitor for improvement. Otherwise, continue current supportive measures including vasopressor support to maintain hemodynamic stability. Avoid hepatotoxic medications. 4. History of hypertension/atrial fibrillation/diabetes mellitus/depression/dementia Complicates care, management, recovery and prognosis. Continue to hold home antihypertensives for now. This note was generated with [employer] dictation software. It may contain incorrect words, spelling, and punctuation that were not noted in checking the note before signing. Subjective Subjective Patient feels subjectively improved compared to yesterday. Patient states he has not been out of bed very often, but has no symptoms at rest. Objective Data Objective Data Vital Signs: Vital Signs Temp Pulse Resp BP Pulse Ox O2 Del Method O2 Flow Rate 36.8 C 62 18 138/94 H 94 Room Air 2 08/20/22 07:44 08/20/22 10:45 08/20/22 07:44 08/20/22 07:44 08/20/22 07:44 08/20/22 07:44 08/19/22 12:00 FiO2 2 08/19/22 13:00 Oxygen Flow Rate (L/min) 2 Oxygen Delivery Method Room Air Weight: 92.9 kg Body Mass Index (BMI) 25.5 Intake & Output: Intake and Output for Last 24 Hours 08/18/22 08/19/22 08/20/22 23:59 23:59 23:59 Intake Total 5799.83 / 5799.83 2182.5 / 2182.5 490 / 490 Output Total 2900 / 3100 6175 / 6575 1400 / 1400 Balance 2899.83 / 2699.83 -3992.5 / -4392.5 -910 / -910 Medical Nutrition Assessment Dietitian: Malnutrition Criteria Met Start: 08/17/22 09:58 Freq: Status: Active Protocol: Document 08/19/22 10:22 NORMA (Rec: 08/19/22 10:22 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 Restrict carbohydrates, fat, sodium as needed once intake adequacy established with meals. Will continue 120 ml ensure plus high protein TID w/ medpass. Will continue ensure pudding BID w/ lunch and dinner. Lab / Micro Data Attestation: I reviewed the patient's lab results. Result Diagrams: 08/20/22 06:21 08/20/22 06:21 Labs: Laboratory Results - last 24 hr 08/19/22 16:25: POC Glucose 170 H 08/19/22 22:42: POC Glucose 139 H 08/20/22 06:21: WBC 17.8 H, RBC 4.05 L, Hgb 11.6 L, Hct 34.5 L, MCV 85.2, MCH 28.6, MCHC 33.6, RDW Std Deviation 46.7 H, RDW Coeff of Benjamin 15.1 H, Plt Count 88 L, MPV 10.0, Immature Gran % (Auto) 0.700, Neut % (Auto) 89.0 H, Lymph % (Auto) 4.0 L, [place]berry % (Auto) 3.5, Eos % (Auto) 2.5, Baso % (Auto) 0.3, Absolute Neuts (auto) 15.9 H, Absolute Lymphs (auto) 0.72 L, Nucleated RBC % 0 08/20/22 06:21: Sodium 144, Potassium 3.0 L, Chloride 112 H, Carbon Dioxide 27.0, Anion Gap 5, BUN 17, Creatinine 0.85, Estim Creat Clear Calc 75.22, Est GFR (MDRD) Af Amer 110, Est GFR (MDRD) Non-Af 91, BUN/Creatinine Ratio 20.0, Glucose 120 H, Calcium 9.0 08/20/22 06:23: POC Glucose 112 H 08/20/22 11:15: POC Glucose 120 H Micro: Microbiology 08/16/22 20:30 Blood Culture (Wb) - Left Hand Blood Culture - Final GNR lactose vending supervisor 08/16/22 20:15 Blood Culture (Wb) - Venous Blood Culture - Final Pluralibacter gergoviae 08/16/22 20:25 Urine Catheter - Lora Urine Culture - Final Pluralibacter gergoviae 08/16/22 20:25 Nasal Secretion SARS-CoV-2 & FLU Antigen (Rapid) - Final Rhythm Strip Rhythm Strip: Sinus Rhythm Rate: 63 Ectopy: - (Occasional bigeminy noted) Physical Exam Const alert and no apparent distress Constitutional Narrative: Oriented to self General Appearance: cooperative HEENT normocephalic, head/scalp atraumatic and moist oral mucous membranes Eyes PERRL, EOMs intact bilaterally and conjunctivae normal Neck supple Neck Narrative: Right subclavian central venous catheter in place. Clean, dry and intact General: trachea midline Chest inspection of chest normal Resp normal respiratory effort Resp Narrative: Fair effort. Auscultation: diminished lung sounds; Negative for rales, rhonchi or wheezes Cardio regular rate, regular rhythm, S1 normal heart sound, S2 normal heart sound and no murmurs Rate: tachycardic Rhythm: abnormal rhythm GI normal to inspection, nondistended, normoactive bowel sounds Extremity no clubbing, cyanosis or edema General Extremity: edema Skin no rashes or lesions noted Neuro oriented x3, CN's II-XII intact bilaterally, moves all extremities and no focal motor deficits Psych cooperative and affect normal Psych Narrative: Impulsive Charges/Coding Visit Charges Inpatient E&M: 97839 Subs Hosp L2
[2022-08-20 17:00] LABS: Bedside Glucose 106 mg/dL (74-106)
[2022-08-20 23:11] LABS: Bedside Glucose 136 mg/dL (74-106)
[2022-08-20 23:21] LABS: Anion Gap 6 (5-15); BUN 22 mg/dL (7-18); Chloride 111 mmol/L (98-107); Creatinine, Serum 0.92 mg/dL (0.70-1.30); EST Glomerular Filtration Rate 84 mL/min (>60); Est Glom Filt Rate - Afr Amer 101 mL/min (>60); Estimated Creatinine Clearance 69.49 ml/min; Glucose 162 mg/dL (74-106); Magnesium 1.7 mg/dL (1.6-2.6); Potassium 3.5 mmol/L (3.5-5.1); Sodium Level 143 mmol/L (136-145)
[2022-08-21] VITALS (11 sets, daily range): BP systolic 140–165; BP diastolic 87–99; PULSE 66–102; RESP 18–19; TEMP 36.6–36.9; O2SAT 94–98
[2022-08-21 05:46] LABS: Absolute Lymphocyte Count 0.72 X10^3/uL (0.83-4.51); Absolute Neutrophil Count 8.7 X10^3/uL (2.0-7.7); Basophil# 0.06 X10^3/uL; Basophil% 0.5 % (0-1); Eosinophil# 0.45 X10^3/uL; Hematocrit 38.3 % (40-54); Hemoglobin 12.4 g/dL (13.0-16.5); Lymphocyte # 0.72 X10^3/ul (0.83-4.51); Lymphocyte % 6.3 % (19-41); Mean Corp Hgb Conc 32.4 g/dL (32-36); Mean Corpuscular Hgb 28.1 pg (27.0-32.0); Mean Corpuscular Volume 86.8 fL (80-94); Mean Platelet Vol. 9.8 fl (6.2-12.0); Monocyte# 0.95 X10^3/uL; Monocyte% 8.3 % (0-10); NRBC Flagged by Analyzer 0.3 % (0-5); Neutrophil # 8.74 X10^3/uL (2.7-7.7); Neutrophil % 76.8 % (47-70); POSITIVE COUNT YES; Platelet Count 98 K/mm3 (150-450); RBC Distribution Width CV 15.2 % (11.6-14.6); RBC Distribution Width SD 48.6 fl (35.1-43.9); Red Blood Count 4.41 M/mm3 (4.6-6.2); White Blood Count 11.4 K/mm3 (4.4-11.0)
[2022-08-21 06:36] LABS: Anion Gap 4 (5-15); BUN 19 mg/dL (7-18); BUN/Creat Ratio 23.7 RATIO (10-20); Chloride 111 mmol/L (98-107); EST Glomerular Filtration Rate 98 mL/min (>60); Est Glom Filt Rate - Afr Amer 118 mL/min (>60); Estimated Creatinine Clearance 79.92 ml/min; Glucose 144 mg/dL (74-106); Potassium 3.7 mmol/L (3.5-5.1); Sodium Level 142 mmol/L (136-145)
[2022-08-21] MEDS: Cefazolin 1 GM/50 ML BAG IV ×3 (07:07→22:34)
[2022-08-21 07:20] LABS: Bedside Glucose 138 mg/dL (74-106)
--- NOTE | 2022-08-21 08:00 | PN.HOSP_ITS ---
Subjective Subjective Bruising on the left arm. Swelling in both arms. Objective Data Objective Data Vital Signs: Vital Signs Temp Pulse Resp BP Pulse Ox O2 Del Method O2 Flow Rate 36.6 C 75 18 156/96 H 98 Nasal Cannula 2 08/21/22 03:30 08/21/22 03:30 08/21/22 03:30 08/21/22 03:30 08/21/22 03:30 08/21/22 06:47 08/21/22 06:47 FiO2 2 08/19/22 13:00 Oxygen Flow Rate (L/min) 2 Oxygen Delivery Method Nasal Cannula Weight: 93.7 kg Body Mass Index (BMI) 25.5 Intake & Output: Intake and Output for Last 24 Hours 08/19/22 08/20/22 08/21/22 23:59 23:59 23:59 Intake Total 2182.5 / 2182.5 810 / 810 Output Total 6175 / 6575 2175 / 2825 1350 / 1350 Balance -3992.5 / -4392.5 -1365 / -2015 -1350 / -1350 Medical Nutrition Assessment Dietitian: Malnutrition Criteria Met Start: 08/17/22 09:58 Freq: Status: Active Protocol: Document 08/19/22 10:22 NORMA (Rec: 08/19/22 10:22 NORMA [id number]) Nutrition Malnutrition Evidence of Malnutrition Exists Yes Malnutrition (severe): Chronic Evidenced By Suboptimal Energy Intake ( Severe),Weight Loss (Severe) Clinical Problem Chronic Disease or Condition Related Malnutrition Etiology Severe protein-calorie malnutrition in the context of chronic disease/debility related to inadequate oral intake Signs/Symptoms as 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 Restrict carbohydrates, fat, sodium as needed once intake adequacy established with meals. Will continue 120 ml ensure plus high protein TID w/ medpass. Will continue ensure pudding BID w/ lunch and dinner. Lab / Micro Data Result Diagrams: 08/21/22 05:15 08/21/22 05:15 Labs: Laboratory Results - last 24 hr 08/20/22 11:15: POC Glucose 120 H 08/20/22 16:40: POC Glucose 106 08/20/22 22:16: POC Glucose 136 H 08/20/22 22:53: Sodium 143, Potassium 3.5, Chloride 111 H, Carbon Dioxide 26.0, Anion Gap 6, BUN 22 H, Creatinine 0.92, Estim Creat Clear Calc 69.49, Est GFR (MDRD) Af Amer 101, Est GFR (MDRD) Non-Af 84, BUN/Creatinine Ratio 24.0 H, Glucose 162 H, Calcium 9.0, Magnesium 1.7 08/21/22 05:15: WBC 11.4 H, RBC 4.41 L, Hgb 12.4 L, Hct 38.3 L, MCV 86.8, MCH 28.1, MCHC 32.4, RDW Std Deviation 48.6 H, RDW Coeff of Benjamin 15.2 H, Plt Count 98 L, MPV 9.8, Immature Gran % (Auto) 4.100 H, Neut % (Auto) 76.8 H, Lymph % (Auto) 6.3 L, [place]edar % (Auto) 8.3, Eos % (Auto) 4.0, Baso % (Auto) 0.5, Absolute Neuts (auto) 8.7 H, Absolute Lymphs (auto) 0.72 L, Nucleated RBC % 0.3 08/21/22 05:15: Sodium 142, Potassium 3.7, Chloride 111 H, Carbon Dioxide 27.0, Anion Gap 4 L, BUN 19 H, Creatinine 0.80, Estim Creat Clear Calc 79.92, Est GFR (MDRD) Af Amer 118, Est GFR (MDRD) Non-Af 98, BUN/Creatinine Ratio 23.7 H, Glucose 144 H, Calcium 9.0 08/21/22 06:43: POC Glucose 138 H Micro: Microbiology 08/16/22 20:30 Blood Culture (Wb) - Left Hand Blood Culture - Final GNR lactose radio interference expert 08/16/22 20:15 Blood Culture (Wb) - Venous Blood Culture - Final Pluralibacter gergoviae 08/16/22 20:25 Urine Catheter - Lora Urine Culture - Final Pluralibacter gergoviae 08/16/22 20:25 Nasal Secretion SARS-CoV-2 & FLU Antigen (Rapid) - Final Rhythm Strip Rhythm Strip: Sinus Rhythm Rate: 63 Ectopy: - (Occasional bigeminy noted) Physical Exam Const alert and no apparent distress Neck no lymphadenopathy Resp normal respiratory effort, no retractions, no use of accessory muscles and clear to auscultation bilaterally Cardio regular rate, regular rhythm, S1 normal heart sound and S2 normal heart sound GI normal to inspection, nondistended, normoactive bowel sounds, soft to palpation, non-tender and non-distended Extremity normal to inspection Assessment & Plan Assessment/Plan (1) Septic shock: PLAN: POA 2/2 GNR UTI and bacteremia Failed response with IVF and was subsequently placed on norepinephrine gtt, subsequently discontinued Follow up cultures pip/tazo and vanc now changed over to cefazolin, Drewes antibiotics through (2) Acute UTI: PLAN: UCx growing out Pluralibacter gerogoviae (a GNR) now on cefazolin (3) Bacteremia: PLAN: Pluralibacter gerogoviae Continue cefazolin (4) Paroxysmal atrial fibrillation with RVR: PLAN: resolved. now off amiodarone gtt and on metoprolol tartrate 100 BID anticoagulated with apixaban. Echo shows an EF of 55%. LV systolic function normal. (5) Transaminitis: PLAN: 2/2 shock trending down. (6) LADONNA (acute kidney injury): PLAN: resolved Creatinine 1.49, now down to 0.82 2/2 shock +/- dehydration (7) Thrombocytopenia: PLAN: may be 2/2 to septic shock Slightly up. monitor (8) Anemia: PLAN: maybe hemodilutional monitor no need for TF (9) Anasarca: PLAN: Patient 2.5 L over. Will initiate furosemide. PLAN: Plan Patient is an 82-year-old gentleman resident at an extended care facility who was brought in with hypoxia hypotension and hematuria. Patient was reported to be apneic during the transfer to the emergency department. An assessment of septic shock secondary to acute cystitis made treatment initiated per protocol with IV fluid and broad-spectrum antibiotic therapy transferred to the intensive care unit for subsequent manageme Chronic conditions: * Essential hypertension: Patient antihypertensives held in view of patient presenting with septic shock * GERD: patient is on PPI * BPH: patient is on tamsulosin, held initially in view of patient hypotension resumed * Diabetes mellitus type 2: Fair control. Patient is on metformin held please on Accu-Cheks before meals and at bedtime with sliding scale coverage * Use of antipsychotics? Patient is on olanzapine indication not clear he was however continued on admission DVT prophylaxis ? Patient is on apixaban Physical deconditioning - Requested for PT OT eval and professor of social work to assist with discharge planning Charges/Coding Visit Charges Inpatient E&M: 27545 Subs Hosp L2
[2022-08-21] MEDS: APIXABAN 5 MG TABLET PO (08:34)
[2022-08-21] MEDS: OLANZapine 5 MG/TAB TAB.RAPDIS PO (08:34)
[2022-08-21] MEDS: Amiodarone 200 MG Tablet PO (08:34)
[2022-08-21] MEDS: Pantoprazole Sodium 20 MG Tablet PO (08:34)
[2022-08-21] MEDS: Metoprolol Tartrate 100 MG Tablet PO (08:34)
[2022-08-21 09:04] LABS: Pathologist Review Reviewed
[2022-08-21 09:04] LABS: Pathologist Review Reviewed
[2022-08-21 09:09] LABS: Pathologist Review Reviewed
[2022-08-21 10:56] LABS: Bedside Glucose 125 mg/dL (74-106)
--- NOTE | 2022-08-21 11:56 | CASEMGMT ---
KYA spoke with patient's and let her know insurance has not given an answer yet to approve patient. SW let her know if we do get approval he can leave after his court hearing at 330. Plan: d/c back to [facility]. [facility]
[2022-08-21] MEDS: Insulin Lispro 100 UNIT/ML INSULN.PEN SC ×2 (16:19→22:35)
[2022-08-21 16:40] LABS: Bedside Glucose 171 mg/dL (74-106)
[2022-08-21] MEDS: Furosemide 40 MG/4 ML Vial IV (17:37)
[2022-08-21] MEDS: Ensure Plus High Protein 120 ML LIQUID PO ×2 (17:37→22:36)
[2022-08-21 23:01] LABS: Bedside Glucose 201 mg/dL (74-106)
[2022-08-22] VITALS (13 sets, daily range): BP systolic 110–160; BP diastolic 79–109; PULSE 77–107; RESP 14–21; TEMP 36.6–37.1; O2SAT 93–97
[2022-08-22] MEDS: APIXABAN 5 MG TABLET PO ×3 (00:16→21:20)
[2022-08-22] MEDS: Metoprolol Tartrate 100 MG Tablet PO ×3 (00:16→21:21)
[2022-08-22] MEDS: Cefazolin 1 GM/50 ML BAG IV ×3 (05:12→21:20)
[2022-08-22 06:16] LABS: Anion Gap 6 (5-15); BUN 17 mg/dL (7-18); BUN/Creat Ratio 19.6 RATIO (10-20); Calcium,Total 9.4 mg/dL (8.5-10.1); Chloride 105 mmol/L (98-107); Creatinine, Serum 0.87 mg/dL (0.70-1.30); EST Glomerular Filtration Rate 89 mL/min (>60); Est Glom Filt Rate - Afr Amer 108 mL/min (>60); Estimated Creatinine Clearance 73.49 ml/min; Glucose 153 mg/dL (74-106); Potassium 3.4 mmol/L (3.5-5.1); Sodium Level 140 mmol/L (136-145)
[2022-08-22 07:25] LABS: Bedside Glucose 130 mg/dL (74-106)
--- NOTE | 2022-08-22 07:46 | PN.HOSP_ITS ---
Subjective Subjective Feels drowsy. States that swelling is arms are improving Objective Data Objective Data Vital Signs: Vital Signs Temp Pulse Resp BP Pulse Ox O2 Del Method O2 Flow Rate 36.9 C 88 20 H 160/109 H 93 Room Air 3 08/22/22 00:15 08/22/22 07:00 08/22/22 00:15 08/22/22 00:15 08/22/22 07:35 08/22/22 07:35 08/21/22 07:17 FiO2 2 08/19/22 13:00 Oxygen Flow Rate (L/min) 3 Oxygen Delivery Method Room Air Weight: 89.9 kg Body Mass Index (BMI) 25.5 Intake & Output: Intake and Output for Last 24 Hours 08/20/22 08/21/22 08/22/22 23:59 23:59 23:59 Intake Total 810 / 810 1300 / 1300 100 / 100 Output Total 2175 / 2825 2950 / 3750 800 / 800 Balance -1365 / -2015 -1650 / -2450 -700 / -700 Medical Nutrition Assessment Dietitian: Malnutrition Criteria Met Start: 08/17/22 09:58 Freq: Status: Active Protocol: Document 08/21/22 13:52 AG (Rec: 08/21/22 13:52 AG [id number]) Nutrition Malnutrition Evidence of Malnutrition Exists Yes Malnutrition (severe): Chronic Evidenced By Suboptimal Energy Intake ( Severe),Weight Loss (Severe) Clinical Problem Chronic Disease or Condition Related Malnutrition Etiology Severe protein-calorie malnutrition in the context of chronic disease/debility related to inadequate oral intake Signs/Symptoms as 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 Will increase 120 ml ensure plus high protein to 4x/day w/ medpass. Will continue ensure pudding BID w/ lunch and dinner. Lab / Micro Data Result Diagrams: 08/21/22 05:15 08/22/22 04:25 Labs: Laboratory Results - last 24 hr 08/16/22 20:15: Diff Path Review Reviewed 08/17/22 04:15: Diff Path Review Reviewed 08/18/22 05:35: Diff Path Review Reviewed 08/21/22 10:33: POC Glucose 125 H 08/21/22 16:18: POC Glucose 171 H 08/21/22 22:32: POC Glucose 201 H 08/22/22 04:25: Sodium 140, Potassium 3.4 L, Chloride 105, Carbon Dioxide 29.0, Anion Gap 6, BUN 17, Creatinine 0.87, Estim Creat Clear Calc 73.49, Est GFR (MDRD) Af Amer 108, Est GFR (MDRD) Non-Af 89, BUN/Creatinine Ratio 19.6, Glucose 153 H, Calcium 9.4 08/22/22 07:07: POC Glucose 130 H Micro: Microbiology 08/16/22 20:30 Blood Culture (Wb) - Left Hand Blood Culture - Final GNR lactose set up and charger 08/16/22 20:15 Blood Culture (Wb) - Venous Blood Culture - Final Pluralibacter gergoviae 08/16/22 20:25 Urine Catheter - Lora Urine Culture - Final Pluralibacter gergoviae 08/16/22 20:25 Nasal Secretion SARS-CoV-2 & FLU Antigen (Rapid) - Final Rhythm Strip Rhythm Strip: Sinus Rhythm Rate: 63 Ectopy: - (Occasional bigeminy noted) Physical Exam Const alert and no apparent distress Resp normal respiratory effort, no retractions and no use of accessory muscles Cardio regular rate, regular rhythm, S1 normal heart sound and S2 normal heart sound GI normal to inspection, nondistended, normoactive bowel sounds, soft to palpation, non-tender and non-distended Assessment & Plan Assessment/Plan (1) Septic shock: PLAN: POA 2/2 GNR UTI and bacteremia Failed response with IVF and was subsequently placed on norepinephrine gtt, subs equently discontinued Follow up cultures pip/tazo and vanc now changed over to cefazolin, Drewes antibiotics through (2) Acute UTI: PLAN: UCx growing out Pluralibacter gerogoviae (a GNR) now on cefazolin (3) Bacteremia: PLAN: Pluralibacter gerogoviae Continue cefazolin (4) Paroxysmal atrial fibrillation with RVR: PLAN: resolved. now off amiodarone gtt and on metoprolol tartrate 100 BID anticoagulated with apixaban. Echo shows an EF of 55%. LV systolic function normal. (5) Transaminitis: PLAN: 2/2 shock trending down. (6) LADONNA (acute kidney injury): PLAN: resolved Creatinine 1.49, now down to 0.82 2/2 shock +/- dehydration (7) Thrombocytopenia: PLAN: may be 2/2 to septic shock Slightly up. monitor (8) Anemia: PLAN: maybe hemodilutional monitor no need for TF (9) Anasarca: PLAN: Patient 2.5 L over. Will initiate furosemide. PLAN: Plan Patient is an 82-year-old gentleman resident at an extended care facility who was brought in with hypoxia hypotension and hematuria. Patient was reported to be apneic during the transfer to the emergency department. An assessment of septic shock secondary to acute cystitis made treatment initiated per protocol with IV fluid and broad-spectrum antibiotic therapy transferred to the intensive care unit for subsequent manageme Chronic conditions: * Essential hypertension: Patient antihypertensives held in view of patient presenting with septic shock * GERD: patient is on PPI * BPH: patient is on tamsulosin, held initially in view of patient hypotension resumed * Diabetes mellitus type 2: Fair control. Patient is on metformin held please on Accu-Cheks before meals and at bedtime with sliding scale coverage * Use of antipsychotics? Patient is on olanzapine indication not clear he was ho wever continued on admission DVT prophylaxis ? Patient is on apixaban Physical deconditioning - Requested for PT OT eval and psychologist social to assist with discharge planning Charges/Coding Visit Charges Inpatient E&M: 05002 Subs Hosp L2
[2022-08-22] MEDS: Amiodarone 200 MG Tablet PO (09:20)
[2022-08-22] MEDS: Potassium Chloride Oral Tablet 20 MEQ 40 MEQ PO (09:20)
[2022-08-22] MEDS: Ensure Plus High Protein 120 ML LIQUID PO ×3 (09:20→17:06)
[2022-08-22] MEDS: Furosemide 40 MG/4 ML Vial IV ×2 (09:20→17:06)
[2022-08-22] MEDS: Pantoprazole Sodium 20 MG Tablet PO (09:21)
[2022-08-22] MEDS: OLANZapine 5 MG/TAB TAB.RAPDIS PO (09:21)
[2022-08-22] MEDS: Insulin Lispro 100 UNIT/ML INSULN.PEN SC ×2 (11:45→21:21)
[2022-08-22] MEDS: Acetaminophen 325 MG Tablet 650 MG PO ×2 (12:43→21:19)
[2022-08-22 14:16] LABS: Bedside Glucose 156 mg/dL (74-106)
[2022-08-22 17:36] LABS: Bedside Glucose 112 mg/dL (74-106)
[2022-08-22 21:56] LABS: Bedside Glucose 172 mg/dL (74-106)
[2022-08-23] VITALS (8 sets, daily range): BP systolic 111–123; BP diastolic 80–81; PULSE 84–106; RESP 15–18; TEMP 36.3–36.9; O2SAT 92–96
[2022-08-23] MEDS: Cefazolin 1 GM/50 ML BAG IV (04:59)
[2022-08-23 05:24] LABS: Anion Gap 7 (5-15); BUN 25 mg/dL (7-18); BUN/Creat Ratio 23.4 RATIO (10-20); Calcium,Total 8.9 mg/dL (8.5-10.1); Chloride 103 mmol/L (98-107); Creatinine, Serum 1.07 mg/dL (0.70-1.30); EST Glomerular Filtration Rate 70 mL/min (>60); Est Glom Filt Rate - Afr Amer 85 mL/min (>60); Estimated Creatinine Clearance 59.75 ml/min; Glucose 142 mg/dL (74-106); Potassium 3.2 mmol/L (3.5-5.1); Sodium Level 138 mmol/L (136-145)
[2022-08-23] MEDS: Potassium Chloride Oral Tablet 20 MEQ 40 MEQ PO (06:21)
[2022-08-23] MEDS: Insulin Lispro 100 UNIT/ML INSULN.PEN SC ×2 (06:26→11:34)
[2022-08-23 06:55] LABS: Bedside Glucose 160 mg/dL (74-106)
--- NOTE | 2022-08-23 07:48 | PN.HOSP_ITS ---
Subjective Subjective Feels drowsy but well otherwise. Objective Data Objective Data Vital Signs: Vital Signs Temp Pulse Resp BP Pulse Ox O2 Del Method O2 Flow Rate 36.3 C L 97 15 123/81 H 96 Room Air 3 08/23/22 03:15 08/23/22 06:41 08/23/22 03:15 08/23/22 03:15 08/23/22 03:15 08/23/22 07:40 08/21/22 07:17 FiO2 2 08/19/22 13:00 Oxygen Flow Rate (L/min) 3 Oxygen Delivery Method Room Air Weight: 88.8 kg Body Mass Index (BMI) 25.5 Intake & Output: Intake and Output for Last 24 Hours 08/21/22 08/22/22 08/23/22 23:59 23:59 23:59 Intake Total 1300 / 1300 600 / 840 290 / 290 Output Total 2950 / 3750 2800 / 4100 1600 / 1600 Balance -1650 / -2450 -2200 / -3260 -1310 / -1310 Medical Nutrition Assessment Dietitian: Malnutrition Criteria Met Start: 08/17/22 09:58 Freq: Status: Active Protocol: Document 08/21/22 13:52 AG (Rec: 08/21/22 13:52 AG [id number]) Nutrition Malnutrition Evidence of Malnutrition Exists Yes Malnutrition (severe): Chronic Evidenced By Suboptimal Energy Intake ( Severe),Weight Loss (Severe) Clinical Problem Chronic Disease or Condition Related Malnutrition Etiology Severe protein-calorie malnutrition in the context of chronic disease/debility related to inadequate oral intake Signs/Symptoms as evidenced by ~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 Will increase 120 ml ensure plus high protein to 4x/day w/ medpass. Will continue ensure pudding BID w/ lunch and dinner. Lab / Micro Data Result Diagrams: 08/21/22 05:15 08/23/22 04:56 Labs: Laboratory Results - last 24 hr 08/22/22 11:44: POC Glucose 156 H 08/22/22 17:04: POC Glucose 112 H 08/22/22 21:18: POC Glucose 172 H 08/23/22 04:56: Sodium 138, Potassium 3.2 L, Chloride 103, Carbon Dioxide 28.0, Anion Gap 7, BUN 25 H, Creatinine 1.07, Estim Creat Clear Calc 59.75, Est GFR (M DRD) Af Amer 85, Est GFR (MDRD) Non-Af 70, BUN/Creatinine Ratio 23.4 H, Glucose 142 H, Calcium 8.9 08/23/22 06:25: POC Glucose 160 H Micro: Microbiology 08/16/22 20:30 Blood Culture (Wb) - Left Hand Blood Culture - Final GNR lactose tapper hand 08/16/22 20:15 Blood Culture (Wb) - Venous Blood Culture - Final Pluralibacter gergoviae 08/16/22 20:25 Urine Catheter - Lora Urine Culture - Final Pluralibacter gergoviae 08/16/22 20:25 Nasal Secretion SARS-CoV-2 & FLU Antigen (Rapid) - Final Rhythm Strip Rhythm Strip: Sinus Rhythm Rate: 63 Ectopy: - (Occasional bigeminy noted) Physical Exam Const alert and no apparent distress Resp normal respiratory effort, no retractions, no use of accessory muscles and clear to auscultation bilaterally Cardio regular rate, regular rhythm, S1 normal heart sound and S2 normal heart sound GI normal to inspection, nondistended, normoactive bowel sounds Extremity Extremity Narrative: resolving edema of bilateral UE. Assessment & Plan Assessment/Plan (1) Septic shock: PLAN: POA 2/2 GNR UTI and bacteremia Failed response with IVF and was subsequently placed on norepinephrine gtt, subsequently discontinued Follow up cultures pip/tazo and vanc now changed over to cephalexin treat through (2) Acute UTI: PLAN: UCx growing out Pluralibacter gerogoviae (a GNR) now on cephalexin. (3) Bacteremia: PLAN: Pluralibacter gerogoviae Continue cefazolin (4) Paroxysmal atrial fibrillation with RVR: PLAN: resolved. now off amiodarone gtt and on metoprolol tartrate 100 BID anticoagulated with apixaban. Echo shows an EF of 55%. LV systolic function normal. (5) Transaminitis: PLAN: 2/2 shock trending down. (6) LADONNA (acute kidney injury): PLAN: resolved Creatinine 1.49, now down to 0.82 2/2 shock +/- dehydration (7) Thrombocytopenia: PLAN: may be 2/2 to septic shock Slightly up. monitor (8) Anemia: PLAN: maybe hemodilutional monitor no need for TF (9) Anasarca: PLAN: Patient 2.5 L over. Improved. Change to PO furosemide. PLAN: Plan Patient is an 82-year-old gentleman resident at an extended care facility who was brought in with hypoxia hypotension and hematuria. Patient was reported to be apneic during the transfer to the emergency department. An assessment of septic shock secondary to acute cystitis made treatment initiated per protocol with IV fluid and broad-spectrum antibiotic therapy transferred to the intensive care unit for subsequent manageme Chronic conditions: * Essential hypertension: Patient antihypertensives held in view of patient presenting with septic shock * GERD: patient is on PPI * BPH: patient is on tamsulosin, held initially in view of patient hypotension resumed * Diabetes mellitus type 2: Fair control. Patient is on metformin held please on Accu-Cheks before meals and at bedtime with sliding scale coverage * Use of antipsychotics? Patient is on olanzapine indication not clear he was however continued on admission DVT prophylaxis ? Patient is on apixaban Physical deconditioning Requested for PT OT eval and social science research assistant to assist with discharge planning. Notified this AM that a message from [employer] was left later on 08/21.(Thanksgiving was 08/22) CM did not get the message until today saying if a begd-sn-vyui was required, it would need to be done today at noon. I received the information at 1140. [phone] and spoke with Blu Mcnair (she declined to provide me her last name) and would provide the information shortly. I spoke with Dr. Zamudio at [facility]. I reviewed the PT notes with him. From his information, it did not appear that pt was significantly limited from his already poor baseline and declined approval for SNF. I asked him why the message was that the patient was not medically ready from the message on the . He said that the information they had was faxed note from the , when the patient was on an amiodarone drip. I informed him that the patient stabilized very quickly and it would have prevented a prolonged hospitalization had they had the more current information at that time. Greater than 50 minutes of which greater than 50% of time was discussing and calling at now giving them my information and speaking with the physician on the peer to peer. Charges/Coding Visit Charges Inpatient E&M: 23376 Subs Hosp L3
[2022-08-23 08:16] LABS: Magnesium 1.8 mg/dL (1.6-2.6)
[2022-08-23] MEDS: Metoprolol Tartrate 100 MG Tablet PO (08:56)
[2022-08-23] MEDS: Amiodarone 200 MG Tablet PO (08:56)
[2022-08-23] MEDS: 0.9% Saline Lock 10 ML Syringe IV (08:57)
[2022-08-23] MEDS: Furosemide 40 MG/4 ML Vial IV (08:57)
[2022-08-23] MEDS: OLANZapine 5 MG/TAB TAB.RAPDIS PO (08:57)
[2022-08-23] MEDS: Pantoprazole Sodium 20 MG Tablet PO (08:57)
[2022-08-23] MEDS: APIXABAN 5 MG TABLET PO (08:57)
[2022-08-23 11:56] LABS: Bedside Glucose 180 mg/dL (74-106)
--- NOTE | 2022-08-23 14:23 | TREXTCAR_ITS ---
Diet Diet Order/Speech Therapy: 08/17/22 01:02 Diet: Regular - General Food consistency:: Regular Liquid Consistency:: Regular/Thin Type of Dietary Supplement:: Ensure Pudding Diet Comments: High protein pudding BID w/ lunch and dinner Routine Orders/Code Status Code Status: DNRCC-A (no intubation) Therapies Weight Bearing: Full weight bearing Physical Therapy: Eval and Treat Occupational Therapy: Eval and Treat Problem/Diagnosis (1) Septic shock: Status: Acute Code(s): A41.9 - Sepsis, unspecified organism; R65.21 - Severe sepsis with septic shock Plan: POA 2/2 GNR UTI and bacteremia Failed response with IVF and was subsequently placed on norepinephrine gtt, subsequently discontinued Follow up cultures pip/tazo and vanc now changed over to cephalexin treat through (2) Acute UTI: Status: Acute Code(s): N39.0 - Urinary tract infection, site not specified Plan: UCx growing out Pluralibacter gerogoviae (a GNR) now on cephalexin. (3) Bacteremia: Status: Acute Code(s): R78.81 - Bacteremia Plan: Pluralibacter gerogoviae Continue cefazolin (4) Paroxysmal atrial fibrillation with RVR: Status: Acute Code(s): I48.0 - Paroxysmal atrial fibrillation Plan: resolved. now off amiodarone gtt and on metoprolol tartrate 100 BID anticoagulated with apixaban. Echo shows an EF of 55%. LV systolic function normal. (5) Transaminitis: Status: Acute Code(s): R74.01 - Elevation of levels of liver transaminase levels Plan: 2/2 shock trending down. (6) LADONNA (acute kidney injury): Status: Acute Code(s): N17.9 - Acute kidney failure, unspecified Plan: resolved Creatinine 1.49, now down to 0.82 2/2 shock +/- dehydration (7) Thrombocytopenia: Status: Acute Code(s): D69.6 - Thrombocytopenia, unspecified Plan: may be 2/2 to septic shock Slightly up. monitor (8) Anemia: Status: Acute Code(s): D64.9 - Anemia, unspecified Plan: maybe hemodilutional monitor no need for TF (9) Anasarca: Status: Acute Code(s): R60.1 - Generalized edema Plan: Patient 2.5 L over. Improved. Change to PO furosemide. Plan Patient is an 82-year-old gentleman resident at an extended care facility who was brought in with hypoxia hypotension and hematuria. Patient was reported to be apneic during the transfer to the emergency department. An assessment of septic shock secondary to acute cystitis made treatment initiated per protocol with IV fluid and broad-spectrum antibiotic therapy transferred to the intensive care unit for subsequent manageme Chronic conditions: * Essential hypertension: Patient antihypertensives held in view of patient presenting with septic shock * GERD: patient is on PPI * BPH: patient is on tamsulosin, held initially in view of patient hypotension resumed * Diabetes mellitus type 2: Fair control. Patient is on metformin held please on Accu-Cheks before meals and at bedtime with sliding scale coverage * Use of antipsychotics? Patient is on olanzapine indication not clear he was however continued on admission DVT prophylaxis ? Patient is on apixaban Physical deconditioning Requested for PT OT eval and social work program coordinator to assist with discharge planning. Notified this AM that a message from [employer] was left later on 08/21.(Thanksgiving was 08/22) did not get the message until today saying if a eolf-tp-fawh was required, it would need to be done today at noon. I received the information at 1140. [facility] at [phone] and spoke with Blu Mcnair (she declined to provide me her last name) and would provide the information shortly. I spoke with Dr. Zamudio at [facility]. I reviewed the PT notes with him. From his information, it did not appear that pt was significantly limited from his already poor baseline and declined approval for SNF. I asked him why the message was that the patient was not medically ready from the message on the . He said that the information they had was faxed note from the , when the patient was on an amiodarone drip. I informed him that the patient stabilized very quickly and it would have prevented a prolonged hospitalization had they had the more current information at that time. Greater than 50 minutes of which greater than 50% of time was discussing and calling at now giving them my information and speaking with the physician on the peer to peer. Allergies/Procedures Done in Hospital Allergies No Known Allergies Allergy (Verified 01/30/22 17:55) Procedures: 2-D Echocardiogram Type of Care/Length of Stay Estimated LOS: More Than 30 Days Type of Care Needed: Intermediate Rehab Potential: Fair Prognosis: Fair Additional Orders/Day of Discharge Day of Discharge: 08/23/22 Dietary and Speech Recommendations Dietitian Recommendations/Changes: Will continue Regular diet as ordered for now given signs/symptoms of malnutrition; consistency as per YARD ASSOCIATE. Will increase 120 ml ensure plus high protein to 4x/day w/ medpass. Will continue ensure pudding BID w/ lunch and dinner. Speech Linguistic Eval Summary: Pt was within functional limits in all areas assessed. He was oriented to self and temporal. He was able to carry on an appropriate conversation answering/asking questions and adding pertinent information. He was able to follow 1-[address] is warranted at this time. Discharge Plan Admission Admit Date/Time: 08/17/22 00:13 Primary Reason for Your Visit: Septic shock Attending Provider: Vick Warner Primary Care Provider: Jared Silverman Consulting Providers: Hadley Claros ; Yobany Latham ; Misty Posey ; Esvin Avelar ; Aguila Plaza ; Colby Latham ; Matthew Moreira ; Stephany Lancaster LEATHER CARVER Discharge Orders/Prescriptions Prescriptions: New acetaminophen [Tylenol] 325 mg Tablet 650 mg PO Q6H PRN PRN (Reason: Pain 1-10 Or Fever) Qty: 30 0RF amiodarone 200 mg Tablet 200 mg PO DAILY Qty: 30 0RF cephalexin 500 mg Capsule 500 mg PO Q12 3 Days Qty: 0 0RF Ensure Plus High Protein 0.08 gram-1.5 kcal/mL Liquid 120 ml PO 4X/DAY Qty: 0 0RF Continued omeprazole 40 mg Capsule,Delayed Release(Dr/Ec) 20 mg PO DAILY tamsulosin 0.4 mg Capsule 0.4 mg PO DAILY metformin 500 mg Tablet Extended Release 24 Hr 500 mg PO BID metoprolol tartrate 100 mg tablet 100 mg PO BID amlodipine 10 mg tablet 10 mg PO DAILY olanzapine 5 mg tablet 5 mg PO DAILY mirtazapine 15 mg tablet 15 mg PO QHS Eliquis 5 mg tablet 5 mg PO BID amino acids-protein hydrolys 30 ml PO/SL DAILY multivitamin 1 tab PO/SL DAILY Referrals / Follow Up: [facility] [Provider Group] - Within 1 Month Jared Silverman MD [Primary Care Provider] - Within 2 Weeks Jonathan Mathew NP, LEATHER CARVER-C [Non-Staff] - Disposition Disposition (needs filled in before D/C Order can be placed): [facility]
--- NOTE | 2022-08-23 14:38 | DS.PCM_ITS ---
Providers Date of Admission: 08/17/22 Primary Care Physician: Dr. Jared Silverman MD Consultations 08/17/22 01:02 Consult: Sales Consulting Director / Pulmonary Medicine Routine Consulting Provider: Pulmonary Medicine rachel [place] Reason for Consult: Septic shock EMERGENT Consult: No MD Notified: Yes Date Notified: 08/17/22 Time Notified: 00:15 Method of Notification: Text Reason For Visit: SEPTIC SHOCK FROM UTI Diagnosis Discharge Diagnosis (1) Septic shock: Status: Acute Code(s): A41.9 - Sepsis, unspecified organism; R65.21 - Severe sepsis with septic shock Plan: POA 2/2 GNR UTI and bacteremia Failed response with IVF and was subsequently placed on norepinephrine gtt, subsequently discontinued Follow up cultures pip/tazo and vanc now changed over to cephalexin treat through (2) Acute UTI: Status: Acute Code(s): N39.0 - Urinary tract infection, site not specified Plan: UCx growing out Pluralibacter gerogoviae (a GNR) now on cephalexin. (3) Bacteremia: Status: Acute Code(s): R78.81 - Bacteremia Plan: Pluralibacter gerogoviae Continue cefazolin (4) Paroxysmal atrial fibrillation with RVR: Status: Acute Code(s): I48.0 - Paroxysmal atrial fibrillation Plan: resolved. now off amiodarone gtt and on metoprolol tartrate 100 BID anticoagulated with apixaban. Echo shows an EF of 55%. LV systolic function normal. (5) Transaminitis: Status: Acute Code(s): R74.01 - Elevation of levels of liver transaminase levels Plan: 2/2 shock trending down. (6) LADONNA (acute kidney injury): Status: Acute Code(s): N17.9 - Acute kidney failure, unspecified Plan: resolved Creatinine 1.49, now down to 0.82 2/2 shock +/- dehydration (7) Thrombocytopenia: Status: Acute Code(s): D69.6 - Thrombocytopenia, unspecified Plan: may be 2/2 to septic shock Slightly up. monitor (8) Anemia: Status: Acute Code(s): D64.9 - Anemia, unspecified Plan: maybe hemodilutional monitor no need for TF (9) Anasarca: Status: Acute Code(s): R60.1 - Generalized edema Plan: Patient 2.5 L over. Improved. Change to PO furosemide. Plan Patient is an 82-year-old gentleman resident at an extended care facility who was brought in with hypoxia hypotension and hematuria. Patient was reported to be apneic during the transfer to the emergency department. An assessment of septic shock secondary to acute cystitis made treatment initiated per protocol with IV fluid and broad-spectrum antibiotic therapy transferred to the intensive care unit for subsequent manageme Chronic conditions: * Essential hypertension: Patient antihypertensives held in view of patient presenting with septic shock * GERD: patient is on PPI * BPH: patient is on tamsulosin, held initially in view of patient hypotension resumed * Diabetes mellitus type 2: Fair control. Patient is on metformin held please on Accu-Cheks before meals and at bedtime with sliding scale coverage * Use of antipsychotics? Patient is on olanzapine indication not clear he was h owever continued on admission DVT prophylaxis ? Patient is on apixaban Physical deconditioning Requested for PT OT eval and social media marketing specialist to assist with discharge planning. Notified this AM that a message from [employer] was left later on 08/21.(Thanksgiving was 08/22) did not get the message until today saying if a voim-ew-sejb was required, it would need to be done today at noon. I received the information at 1140. I called [facility] at [phone] and spoke with Blu Mcnair (she declined to provide me her last name) and would provide the information shortly. I spoke with Dr. Zamudio at [facility]. I reviewed the PT notes with him. From his information, it did not appear that pt was significantly limited from his already poor baseline and declined approval for SNF. I asked him why the message was that the patient was not medically ready from the message on the . He said that the information they had was faxed note from the , when the patient was on an amiodarone drip. I informed him that the patient stabilized very quickly and it would have prevented a prolonged hospitalization had they had the more current information at that time. Greater than 50 minutes of which greater than 50% of time was discussing and calling at now giving them my information and speaking with the physician on the peer to peer. Discharge to [facility] as self-pay. Medications at Discharge Home Medications metformin 500 mg tablet,extended release 24 hr 500 mg PO BID 01/30/22 omeprazole 40 mg capsule,delayed release 20 mg PO DAILY 01/30/22 tamsulosin 0.4 mg capsule 0.4 mg PO DAILY 01/30/22 amino acids-protein hydrolys 30 ml PO/SL DAILY 08/16/22 amlodipine 10 mg tablet 10 mg PO DAILY 08/16/22 apixaban 5 mg tablet (Eliquis) 5 mg PO BID 08/16/22 metoprolol tartrate 100 mg tablet 100 mg PO BID 08/16/22 mirtazapine 15 mg tablet 15 mg PO QHS 08/16/22 multivitamin 1 tab PO/SL DAILY 08/16/22 olanzapine 5 mg tablet 5 mg PO DAILY 08/16/22 acetaminophen 325 mg tablet (Tylenol) 650 mg PO Q6H PRN PRN Pain 1-10 Or Fever #30 tabs 08/23/22 amiodarone 200 mg tablet 200 mg PO DAILY #30 tabs 08/23/22 cephalexin 500 mg capsule 500 mg PO Q12 3 days #0 caps 08/23/22 food supplemt, lactose-reduced 0.08 gram-1.5 kcal/mL oral liquid (Ensure Plus High Protein) 120 ml PO 4X/DAY #0 mL 08/23/22 Hospital Course Summary of Care Provided Minutes Spent on Discharge: 55 Medical Records Data Medical Nutrition Assessment Dietitian: Malnutrition Criteria Met Start: 08/17/22 09: 58 Freq: Status: Active Protocol: Document 08/21/22 13:52 AG (Rec: 08/21/22 13:52 [id number]) Nutrition Malnutrition Evidence of Malnutrition Exists Yes Malnutrition (severe): Chronic Evidenced By Suboptimal Energy Intake ( Severe),Weight Loss (Severe) Clinical Problem Chronic Disease or Condition Related Malnutrition Etiology Severe protein-calorie malnutrition in the context of chronic disease/debility related to inadequate oral intake Signs/Symptoms as evidenced by ~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 Will increase 120 ml ensure plus high protein to 4x/day w/ medpass. Will continue ensure pudding BID w/ lunch and dinner. Weight / BMI Weight Weight: 88.8 kg Body Mass Index (BMI) 25.5 ABG / Lab / Microbiology Data Result Diagrams: 08/21/22 05:15 08/23/22 04:56 Laboratory: Laboratory Results - last 24 hr 08/22/22 17:04: POC Glucose 112 H 08/22/22 21:18: POC Glucose 172 H 08/23/22 04:56: Sodium 138, Potassium 3.2 L, Chloride 103, Carbon Dioxide 28.0, Anion Gap 7, BUN 25 H, Creatinine 1.07, Estim Creat Clear Calc 59.75, Est GFR (MDRD) Af Amer 85, Est GFR (MDRD) Non-Af 70, BUN/Creatinine Ratio 23.4 H, Glucose 142 H, Calcium 8.9 08/23/22 04:56: Magnesium 1.8 08/23/22 06:25: POC Glucose 160 H 08/23/22 11:33: POC Glucose 180 H Microbiology: Microbiology 08/16/22 20:30 Blood Culture (Wb) - Left Hand Blood Culture - Final GNR lactose fisheries management biologist 08/16/22 20:15 Blood Culture (Wb) - Venous Blood Culture - Final Pluralibacter gergoviae 08/16/22 20:25 Urine Catheter - Lora Urine Culture - Final Pluralibacter gergoviae 08/16/22 20:25 Nasal Secretion SARS-CoV-2 & FLU Antigen (Rapid) - Final Meaningful Use Info Meaningful Use Diagnoses (Choose all that apply): None applicable Discharge Plan Admission Admit Date/Time: 08/17/22 00:13 Primary Reason for Your Visit: Septic shock Attending Provider: Vick Warner Primary Care Provider: Jared Silverman Consulting Providers: Hadley Claros ; Yobany Latham ; Misty Posey ; Esvin Avelar ; Aguila Plaza ; Colby Latham ; Matthew Moreira ; Stephany Lancaster HUMAN RESOURCES COMPENSATION ANALYST Discharge Orders/Prescriptions Prescriptions: New acetaminophen [Tylenol] 325 mg Tablet 650 mg PO Q6H PRN PRN (Reason: Pain 1-10 Or Fever) Qty: 30 0RF amiodarone 200 mg Tablet 200 mg PO DAILY Qty: 30 0RF cephalexin 500 mg Capsule 500 mg PO Q12 3 Days Qty: 0 0RF Ensure Plus High Protein 0.08 gram-1.5 kcal/mL Liquid 120 ml PO 4X/DAY Qty: 0 0RF Continued omeprazole 40 mg Capsule,Delayed Release(Dr/Ec) 20 mg PO DAILY tamsulosin 0.4 mg Capsule 0.4 mg PO DAILY metformin 500 mg Tablet Extended Release 24 Hr 500 mg PO BID metoprolol tartrate 100 mg tablet 100 mg PO BID amlodipine 10 mg tablet 10 mg PO DAILY olanzapine 5 mg tablet 5 mg PO DAILY mirtazapine 15 mg tablet 15 mg PO QHS Eliquis 5 mg tablet 5 mg PO BID amino acids-protein hydrolys 30 ml PO/SL DAILY multivitamin 1 tab PO/SL DAILY Referrals / Follow Up: [facility] [Provider Group] - Within 1 Month Jared Silverman MD [Primary Care Provider] - Within 2 Weeks Jonathan Mathew NP, HUMAN RESOURCES COMPENSATION ANALYST-C [Non-Staff] - Disposition Disposition (needs filled in before D/C Order can be placed): [facility] Facility Charges/Coding Visit Charges Inpatient E&M: 94017 Disch Hosp
--- NOTE | 2022-08-23 16:46 | NURSING ---
This RN called and gave report to JARROD Rogel at [facility].
[2022-08-23 16:50] LABS: Bedside Glucose 140 mg/dL (74-106)
--- NOTE | 2022-08-23 17:24 | CASEMGMT ---
Social Work PCU Received notice in [employer] this morning that insurance is requesting a peer to peer. Also picked up voice message left on 08.21.2022 from Pearl at [facility] reporting the insurance medical billing coordinator requesting a peer to peer due to feeling the patient is not medically ready for discharge. Sent a Backline message to Dr. Warner. Spoke with physician who agrees to do the peer to peer. Number: , option 4; Collaboration with physician after call with insurance who reports the insurance indicated declined referral for SNF. [facility] message sent to Pearl and Megan with this update. Met with patient and in room, introducing to self and social work role. Updated patient and to report regarding insurance precert determination from peer to peer of non-need for skilled care. reports was afraid the insurance would say this. accepting of patient returning to [facility] private pay. Let know discharge may happen today. asks to be updated to discharge time. Let know, instructions on chart (green sheet) indicating to be called. reports patient has been at [facility] since March and confirms has been private pay there. Patient communicative, though appearing slightly confused as evidenced by thinking this commercial underwriter was from [facility] and that [facility] didn't want patient back. Emotional support offered and assured patient that welcome back at [facility]. asked patient if patient would prefer to stay in the hospital and patient stated no. teary eyed sharing she and patient just last week, after 34 years of marriage, only due to financial reasons, though plans to continue to act as patient's spouse. Spoke with Pearl at [facility] who confirms patient can return private pay. Then received another call from Pearl asking for clarification as to what insurance said to the doctor, as apparently the peer to peer was just for determination if patient was medically ready for discharge. Spoke with Dr. Warner to clarify, and reviewed physician's notes. Relayed information to Pearl and updated that physician indicates patient is ready for discharge today. Per Pearl, [facility] can accept. Plan: Discharge intermediate level of care, private pay back to [facility]. GREEN SHEET on chart to follow at time of discharge. -LIANET Izquierdo HUMAN RESOURCES LEADER
== END 2022-08-23 17:24 | disposition skilled nursing facility (03) | DRG 871 ==
LOC: ED 08-17 00:08 → ICU 08-17 00:21 → PCU 08-20 11:14
PROVIDERS: Hospitalist; Internal Medicine; Internal Medicine Critical Care Medicine; Admitting Provider Family Medicine; Emergency Provider Emergency Medicine; PCP Family Medicine
DX: A41.50 Gram-negative sepsis, unspecified (principal); R65.21 Severe sepsis with septic shock; E43 Unspecified severe protein-calorie malnutrition; N17.9 Acute kidney failure, unspecified; E87.20 Acidosis, unspecified; N30.00 Acute cystitis without hematuria; D69.6 Thrombocytopenia, unspecified; F03.90 Unspecified dementia, unspecified severity, without behavioral disturbance, psychotic disturbance, mood disturbance, and anxiety; I48.0 Paroxysmal atrial fibrillation; Z79.4 Long term (current) use of insulin; E11.9 Type 2 diabetes mellitus without complications; I10 Essential (primary) hypertension; K21.9 Gastro-esophageal reflux disease without esophagitis; E78.5 Hyperlipidemia, unspecified; D64.9 Anemia, unspecified; E83.42 Hypomagnesemia; Z79.84 Long term (current) use of oral hypoglycemic drugs; R31.9 Hematuria, unspecified; Z66 Do not resuscitate; N40.0 Benign prostatic hyperplasia without lower urinary tract symptoms; R74.01 Elevation of levels of liver transaminase levels; R60.1 Generalized edema
CPT/HCPCS: 36415; 36556; 71045; 76705; 80048; 80053; 80076; 81001; 82962; 83605; 83735; 84100; 84484; 85025; 87040; 87077; 87086; 87088; 87186; 87426; 87428; 87641; 92526; 92610; 93005; 93306; 94762; 97110; 97116; 97162; 97165; 97530; 97535; 97802; 97803; 99285; J7030; J7040; J7050; Q9957; A4216; C1751; C8929; J1940

== ENCOUNTER 2024-01-18 21:29 | Emergency (ER) | payer MEDICARE, MEDICAID, SELFPAY ==
[2024-01-18] VITALS (11 sets, daily range): BP systolic 111–125; BP diastolic 67–84; PULSE 57–102; RESP 18–25; TEMP 36.3–36.4; O2SAT 88–98; BMI 36.4
--- NOTE | 2024-01-18 21:50 | RAD_ITS ---
INDICATION: wheezing EXAMINATION/TECHNIQUE: X-RAY - AP view of chest COMPARISON: Chest x-ray from 08/16/2022 FINDINGS: LINES/DEVICES: None. LUNGS: Mild bibasilar atelectatic changes. No overt pulmonary edema. Stable mildly elevated right hemidiaphragm. No sizable pleural effusion. No detectable pneumothorax. MEDIASTINUM AND CARDIOVASCULAR STRUCTURES: Heart size within normal limits for imaging technique. Atherosclerotic calcifications along aorta. BONES AND SOFT TISSUES: Skeletal degenerative changes. RAD/Chest 1 View (Portable) IMPRESSION: Bibasilar atelectatic changes Electronically Signed: Levi Linares MD at 22:25 EDT ,
--- NOTE | 2024-01-18 22:42 | EDS_ITS ---
HPI History of Present Illness Chief Complaint: Weakness Informant: patient and SNF Narrative Narrative: [facility] 83[facility] with past medical history of hypertension hyperlipidemia paroxysmal atrial fibrillation currently on Coumadin and reported history of dementia per [facility]. half-way patient states that he has had generalized weakness for the past 2 days. Patient states that is a whole body weakness and focal but he denies any sick symptoms such as nausea vomiting diarrhea dysuria fevers or chills. He does state that he is felt slightly short of breath and has had oxygen on for the last 2 days which is not normal for him. Secondary to the persistent symptoms and need for supplemental oxygen he was sent in for evaluation [facility] Medical History Anemia Anxiety BPH with urinary obstruction Delirium Depression Depression with suicidal ideation Encephalopathy chronic GERD (gastroesophageal reflux disease) GI bleed History of dementia Hx of supraventricular tachycardia Hyperkalemia Hyperlipidemia Hypertension Hypomagnesemia Paroxysmal atrial fibrillation with RVR Thrombocytopenia Type 2 diabetes mellitus Home Medications tamsulosin 0.4 mg capsule 0.4 mg PO DAILY BPH 01/30/22 [History Last Taken Unknown] amino acids-protein hydrolys 30 ml PO/SL DAILY 08/16/22 [History Last Taken Unknown] amlodipine 10 mg tablet 10 mg PO DAILY 08/16/22 [History Last Taken Unknown] metoprolol tartrate 100 mg tablet 100 mg PO BID 08/16/22 [History Last Taken Unknown] mirtazapine 15 mg tablet 15 mg PO QHS 08/16/22 [History Last Taken Unknown] olanzapine 5 mg tablet 5 mg PO DAILY 08/16/22 [History Last Taken Unknown] amiodarone 200 mg tablet 200 mg PO DAILY #30 tabs 08/23/22 [Rx Last Taken Unknown] acetaminophen 325 mg tablet (Tylenol) 650 mg PO Q6H PRN Pain 1-10 Or Fever 01/10/23 [History Last Taken Unknown] docusate sodium 100 mg capsule (Colace) 100 mg PO DAILY 01/10/23 [History Last Taken Unknown] metformin 500 mg tablet 500 mg PO BID 01/10/23 [History Last Taken Unknown] multivitamin 1 tab PO DAILY 01/10/23 [History Last Taken Unknown] omeprazole 20 mg capsule,delayed release 20 mg PO DAILY 01/10/23 [History Last Taken Unknown] venlafaxine 150 mg capsule,extended release 24 hr (Effexor XR) 75 mg PO DAILY 01/10/23 [History Last Taken Unknown] polyethylene glycol 3350 17 gram/dose oral powder (Miralax) 17 g PO DAILY 01/29/23 [History Last Taken Unknown] warfarin 5 mg tablet 5 mg PO QHS 02/25/23 [History Last Taken Unknown] Allergy/AdvReac Type Severity Reaction Status Date / Time No Known Allergies Allergy Verified 01/18/24 21:30 Family History Father Cancer Mother Diabetes Surgical History History of radiofrequency ablation for complex right atrial arrhythmia (~03/13/22) Social History household members: spouse Smoking Status: Former smoker how long ago did patient quit smokin alcohol intake: never substance use type: does not use caffeine: Yes Type: carbonated beverages and coffee ROS ROS ED Constitutional Constitutional ED: Denies chills or fever(s) ENT ENT ED: Denies rhinorrhea or sore throat Cardiovascular Cardiovascular: Denies chest pain Respiratory/Chest Respiratory/Chest: Reports dyspnea; Denies cough Gastrointestinal Gastrointestinal: Denies abdominal pain, diarrhea, nausea or vomiting Genitourinary Genitourinary ED: Denies dysuria Musculoskeletal Musculoskeletal: Denies myalgias Integumentary Denies rash Neurologic Neurologic: Reports weakness; Denies headache(s) Hematologic/Lymphatic Hematologic/Lymphatic: Reports easy bleeding and easy bruising EXAM Physical Exam Const Vital Signs: 01/18/24 21:30 01/18/24 21:32 01/18/24 21:39 Temperature 97.5 F L 97.5 F L Temperature Source Oral Oral Pulse Rate 62 59 L Respiratory Rate 18 25 H Respiratory Effort Respiratory Pattern Blood Pressure 124/84 H 124/84 H Blood Pressure Mean 97 97 Pulse Ox 93 88 93 Oxygen Delivery Method Room Air Room Air Nasal Cannula Oxygen Flow Rate (L/min) 2 01/18/24 21:40 01/18/24 22:32 01/18/24 23:00 Temperature 97.3 F L 97.3 F L Temperature Source Oral Temporal Pulse Rate 58 L 102 H Respiratory Rate 18 19 H Respiratory Effort Labored Respiratory Pattern Tachypnea Blood Pressure 112/84 H 125/67 H Blood Pressure Mean 93 86 Pulse Ox 96 98 Oxygen Delivery Method Nasal Cannula Nasal Cannula Oxygen Flow Rate (L/min) 2 2 01/18/24 22:57 01/18/24 21:34 01/18/24 22:30 Temperature Temperature Source Pulse Rate 60 60 59 L Respiratory Rate 22 H 24 H Respiratory Effort Respiratory Pattern Tachypnea Blood Pressure 122/83 H Blood Pressure Mean 94 Pulse Ox 90 93 Oxygen Delivery Method Nasal Cannula Oxygen Flow Rate (L/min) 2 01/18/24 22:45 01/18/24 23:00 01/18/24 23:15 Temperature Temperature Source Pulse Rate 59 L 57 L 58 L Respiratory Rate 24 H 20 H 22 H Respiratory Effort Respiratory Pattern Blood Pressure 123/81 H 112/84 H 111/77 Blood Pressure Mean 96 94 88 Pulse Ox 94 95 90 Oxygen Delivery Method Oxygen Flow Rate (L/min) 01/18/24 23:30 Temperature Temperature Source Pulse Rate 58 L Respiratory Rate 24 H Respiratory Effort Respiratory Pattern Blood Pressure 116/80 Blood Pressure Mean 92 Pulse Ox 94 Oxygen Delivery Method Oxygen Flow Rate (L/min) Positive well nourished, well developed and obese General Appearance ED: well developed and pallor Nutritional Appearance: obese HEENT Reports dry mucous membranes HEENT Narrative: No tongue or lip swelling no oral lesions no airway edema or compromise Mouth ED: Yes dry mucous membranes Mouth: dry mucous membranes Eyes PERRL and EOMs intact bilaterally General Eye ED: Negative for pale conjunctiva or scleral icterus Neck supple and no JVD Chest Wall palpation of chest normal Resp normal respiratory effort Resp Narrative: Breath sounds are diminished throughout with rhonchi in the bilateral lower lobes greatest on the right however no nasal flaring retractions tachypnea or accessory muscle use Cardio regular rate and regular rhythm Rate: other Other Details: Radial and carotid pulses are equal and symmetric GI normal to inspection, nondistended, normoactive bowel sounds, non-tender, non- distended and no masses GI Narrative: No voluntary guarding or rigidity or pulsatile mass No fluid wave Auscultation: normoactive bowel sounds Palpation: soft Extremity Extremity Narrative: +2-3 pitting edema to the bilateral lower extremities that is equal and symmetric Negative Homans' sign bilaterally Neuro oriented x3 and CN's II-XII intact bilaterally Neuro Narrative: Patient is awake and alert and oriented to person place and time and cranial nerves II through XII are grossly intact without focal neurologic deficit GCS of 15 Sensorium / Orientation: alert Psych mental status grossly normal Skin no rashes or lesions noted, No no wounds and skin turgor normal General Skin Exam: pallor; Negative for jaundice MDM MDM MDM Narrative Medical decision making narrative: Patient arrived to the ER afebrile with normal neurologic exam and overall no increased work of breathing. However he was having a pulse ox that was decreased at approximately 88 to 90% on room air. Patient reported overall generalized weakness for the past 1 to 2 days and there were no focal findings to suggest acute stroke. With his generalized weakness and mild hypoxia noted on exam there is concern for pneumonia versus pleural effusion versus pneumothorax versus viral syndrome such as RSV versus influenza versus COVID. There is also potential for acute blood loss anemia or acute kidney injury or UTI. Secondary to this a chest x-ray with basic blood work was obtained. Labs show no white count or severe anemia kidney function is slightly elevated but not drastically from his baseline to indicate acute kidney injury. Urine sample shows no sign of infection and chest x-ray does shows atelectasis without obvious infiltrate and this does correlate with the fact he does not have a white count or fever. At this time with his neutrophils being slightly elevated and his lymphocytes slightly low I feel this is most likely viral syndrome. [facility] with [facility] for supplemental oxygen to help with the atelectasis and mild hypoxia from the viral syndrome but as there is not findings to suggest systemic infection such as sepsis from a pneumonia and he does not need to be admitted for blood transfusion or electrolyte abnormality or LADONNA he is otherwise safe for discharge back to the [facility] History & Record Review Discussion w/independent historian: Patient Lab Data Attestation: I reviewed the patient's lab results. Labs: Laboratory Results - last 24 hr 01/18/24 01/18/24 01/18/24 22:00 22:00 22:35 WBC Cancelled 8.9 Corrected WBC Cancelled RBC Cancelled 4.45 L Hgb Cancelled 13.3 Hct Cancelled 39.5 L MCV Cancelled 88.8 MCH Cancelled 29.9 MCHC Cancelled 33.7 RDW Std Deviation Cancelled 43.6 RDW Coeff of Benjamin Cancelled 13.3 Plt Count Cancelled 118 L MPV Cancelled 9.1 Immature Gran % (Auto) Cancelled 0.400 Neut % (Auto) Cancelled 82.0 H Lymph % (Auto) Cancelled 6.3 L Castro % (Auto) Cancelled 10.1 H Eos % (Auto) Cancelled 0.9 Baso % (Auto) Cancelled 0.3 Absolute Neuts (auto) Cancelled 7.3 Absolute Lymphs (auto) Cancelled 0.56 L Total Counted Cancelled Neutrophils % (Manual) Cancelled Band Neutrophils % Cancelled Lymphocytes % (Manual) Cancelled Monocytes % (Manual) Cancelled Eosinophils % (Manual) Cancelled Basophils % (Manual) Cancelled Metamyelocytes % Cancelled Myelocytes % Cancelled Promyelocytes % Cancelled Blast Cells % Cancelled Plasma Cell % (Manual) Cancelled Other Cells % Cancelled Nucleated RBC % Cancelled 0 Nucleated RBCs/100 WBC Cancelled Differential Comment Cancelled SEE COMMENT Diff Path Review Cancelled Hypersegmented Neuts Cancelled Atypical Lymphocytes Cancelled Reactive Lymphocytes Cancelled Smudge Cells Cancelled Toxic Granulation Cancelled Toxic Vacuolation Cancelled Dohle Bodies Cancelled Becky Rods Cancelled Platelet Estimate Cancelled SLT DEC Plt Morphology Comment Cancelled RBC Morphology Cancelled Cancelled N CHROM Polychromasia Cancelled Hypochromasia Cancelled Basophilic Stippling Cancelled Anisocytosis Cancelled RARE Microcytosis Cancelled Macrocytosis Cancelled Spherocytes Cancelled Sickle Cells Cancelled Target Cells Cancelled Tear Drop Cells Cancelled Ovalocytes Cancelled Stomatocytes Cancelled Mason-Sebring Bodies Cancelled Jimbo Cells Cancelled Bite Cells Cancelled Crenated Cell Cancelled Acanthocytes (Spur) Cancelled Rouleaux Cancelled Schistocytes Cancelled PT 21.8 H INR 1.9 APTT 35.0 Sodium 136 Potassium 4.7 Chloride 103 Carbon Dioxide 29.0 Anion Gap 4 L BUN 29 H Creatinine 1.37 H Estim Creat Clear Calc 48.63 Est GFR (MDRD) Af Amer 63 Est GFR (MDRD) Non-Af 52 L BUN/Creatinine Ratio 21.2 H Glucose 111 H Calcium 9.0 Magnesium 2.0 B-Natriuretic Peptide Cancelled 71.1 Urine Color Urine Clarity Urine pH Ur Specific [place] Urine Protein Urine Glucose (UA) Urine Ketones Urine Occult Blood Urine Nitrite Urine Bilirubin Urine Urobilinogen Ur Leukocyte Esterase Urine RBC Urine WBC Ur Squamous Epith Cells Urine Bacteria Urine Mucus 01/18/24 22:42 WBC Corrected WBC RBC Hgb Hct MCV MCH MCHC RDW Std Deviation RDW Coeff of Benjamin Plt Count MPV Immature Gran % (Auto) Neut % (Auto) Lymph % (Auto) Castro % (Auto) Eos % (Auto) Baso % (Auto) Absolute Neuts (auto) Absolute Lymphs (auto) Total Counted Neutrophils % (Manual) Band Neutrophils % Lymphocytes % (Manual) Monocytes % (Manual) Eosinophils % (Manual) Basophils % (Manual) Metamyelocytes % Myelocytes % Promyelocytes % Blast Cells % Plasma Cell % (Manual) Other Cells % Nucleated RBC % Nucleated RBCs/100 WBC Differential Comment Diff Path Review Hypersegmented Neuts Atypical Lymphocytes Reactive Lymphocytes Smudge Cells Toxic Granulation Toxic Vacuolation Dohle Bodies Becky Rods Platelet Estimate Plt Morphology Comment RBC Morphology Polychromasia Hypochromasia Basophilic Stippling Anisocytosis Microcytosis Macrocytosis Spherocytes Sickle Cells Target Cells Tear Drop Cells Ovalocytes Stomatocytes Mason-Sebring Bodies [place] Cells Bite Cells Crenated Cell Acanthocytes (Spur) Rouleaux Schistocytes PT INR APTT Sodium Potassium Chloride Carbon Dioxide Anion Gap BUN Creatinine Estim Creat Clear Calc Est GFR (MDRD) Af Amer Est GFR (MDRD) Non-Af BUN/Creatinine Ratio Glucose Calcium Magnesium B-Natriuretic Peptide Urine Color Yellow Urine Clarity Clear Urine pH 5.0 Ur Specific [place] 1.025 Urine Protein 15 H Urine Glucose (UA) Normal Urine Ketones 5 H Urine Occult Blood Negative Urine Nitrite Negative Urine Bilirubin 1 H Urine Urobilinogen 1 H Ur Leukocyte Esterase 25 H Urine RBC 0 SEEN Urine WBC 0-5 SEEN Ur Squamous Epith Cells 0 SEEN Urine Bacteria 0 SEEN Urine Mucus 0 SEEN Radiography Diagnostic Testing: Clinical Impression(s) from Imaging Studies Chest X-Ray 01/18/24 21:50 IMPRESSION: Bibasilar atelectatic changes Electronically Signed: Levi Linares MD at 22:25 EDT , Chest x-ray as interpreted by the emergency medicine physician reveals atelectasis without acute infiltrate pleural effusion or pneumothorax Discharge Plan Triage Chief Complaint: Weakness ED Provider: Erick Connor Dx/Rx/DC Orders Clinical Impression: Generalized weakness, Viral syndrome, Dyspnea, Paroxysmal atrial fibrillation with RVR, Current use of [facility]pc anticoagulation Instructions: ED Dyspnea, ED Viral Syndrome (Adult) Prescriptions: No Action warfarin 5 mg tablet 5 mg PO QHS acetaminophen [Tylenol] 325 mg tablet 650 mg PO Q6H PRN (Reason: Pain 1-10 Or Fever) docusate sodium [Colace] 100 mg capsule 100 mg PO DAILY venlafaxine [Effexor XR] 150 mg capsule,extended release 24hr 75 mg PO DAILY metformin 500 mg tablet 500 mg PO BID multivitamin Tablet 1 tab PO DAILY omeprazole 20 mg capsule,delayed release(DR/EC) 20 mg PO DAILY polyethylene glycol 3350 [Miralax] 17 gram/dose powder 17 g PO DAILY tamsulosin 0.4 mg Capsule 0.4 mg PO DAILY metoprolol tartrate 100 mg tablet 100 mg PO BID amlodipine 10 mg tablet 10 mg PO DAILY olanzapine 5 mg tablet 5 mg PO DAILY mirtazapine 15 mg tablet 15 mg PO QHS amino acids-protein hydrolys 30 ml PO/SL DAILY amiodarone 200 mg Tablet 200 mg PO DAILY Qty: 30 0RF Primary Care Provider: Jared Silverman Referrals: Jared Silverman MD [Primary Care Provider] - Activity Restrictions/Additional Instructions: The patient's workup does not reveal any obvious pneumonia or fluid on the lungs and his lab work reveals no clinically significant findings either. History and exam is consistent with a viral syndrome and therefore provide supplemental oxygen as directed to help keep his pulse ox above 90%. Return to the ER should he he have any further concerns Disposition Disposition: Home, Self Care
[2024-01-18 22:43] LABS: Anion Gap 4 (5-15); BUN 29 mg/dL (7-18); BUN/Creat Ratio 21.2 RATIO (10-20); Chloride 103 mmol/L (98-107); Creatinine, Serum 1.37 mg/dL (0.70-1.30); EST Glomerular Filtration Rate 52 mL/min (>60); Est Glom Filt Rate - Afr Amer 63 mL/min (>60); Estimated Creatinine Clearance 48.63 ml/min; Glucose 111 mg/dL (74-106); Potassium 4.7 mmol/L (3.5-5.1); Sodium Level 136 mmol/L (136-145)
[2024-01-18 22:45] LABS: Absolute Lymphocyte Count 0.56 X10^3/uL (0.83-4.51); Absolute Neutrophil Count 7.3 X10^3/uL (2.0-7.7); Basophil# 0.03 X10^3/uL; Basophil% 0.3 % (0-1); Eosinophil# 0.08 X10^3/uL; Eosinophils% 0.9 % (0-5); Hematocrit 39.5 % (40-54); Hemoglobin 13.3 g/dL (13.0-16.5); Lymphocyte # 0.56 X10^3/ul (0.83-4.51); Lymphocyte % 6.3 % (19-41); Mean Corp Hgb Conc 33.7 g/dL (32-36); Mean Corpuscular Hgb 29.9 pg (27.0-32.0); Mean Corpuscular Volume 88.8 fL (80-94); Mean Platelet Vol. 9.1 fl (6.2-12.0); Monocyte% 10.1 % (0-10); NRBC Flagged by Analyzer 0 % (0-5); Neutrophil # 7.31 X10^3/uL (2.7-7.7); POSITIVE DIFFERENTIAL YES; Platelet Count 118 K/mm3 (150-450); RBC Distribution Width CV 13.3 % (11.6-14.6); RBC Distribution Width SD 43.6 fl (35.1-43.9); Red Blood Count 4.45 M/mm3 (4.6-6.2); White Blood Count 8.9 K/mm3 (4.4-11.0)
[2024-01-18 22:56] LABS: Bacteria 0 SEEN /hpf (None Seen); Mucous, Urine 0 SEEN /hpf (<or=2+); Red Blood Cells-Urine 0 SEEN /hpf (0-5); Squamous Epithelial Cells - UA 0 SEEN /hpf (0-5)
[2024-01-18] MEDS: Ipratropium/Albuterol Sulfate 3 ML AMPUL.NEB INHALATION (22:57)
[2024-01-18 22:59] LABS: Color, Urine Yellow (Yellow); Glucose, Dipstick Normal (Normal); Ketone-Dipstick 5 mg/dl (Negative); Leukocyte Esterase-Dipstick 25 /ul (Negative); Nitrite-Dipstick Negative (Negative); Occult Blood-Urine Negative /ul (Negative); Protein-Dipstick 15 mg/dl (Negative); Specific Gravity, Urine 1.025 (1.002-1.030); Urine Clarity Clear (Clear); Urine Urobilinogen 1 mg/dl (Normal)
[2024-01-18 23:00] LABS: Urine Bilirubin Dipstick 1 mg/dL (Negative)
[2024-01-18 23:06] LABS: International Normalized Ratio 1.9; Prothrombin Time (Protime)PT. 21.8 SECONDS (11.7-14.9)
[2024-01-18 23:10] LABS: White Blood Cells 0-5 SEEN /hpf (0-5)
[2024-01-18 23:11] LABS: Differential Indicated SCAN CRITERIA MET
[2024-01-18 23:12] LABS: BNP,B-Type NATRIURETIC PEPTIDE 71.1 pg/mL (0-100)
[2024-01-18 23:13] LABS: Anisocytosis RARE; Platelet Estimate SLT DEC (ADEQ); Red Cell Morphology N CHROM NORMAL (NORM C&C)
[2024-01-19 00:45] VITALS: BP 121/77; PULSE 58; RESP 23; O2SAT 92
[2024-01-19 01:00] VITALS: BP 119/86; PULSE 59; RESP 24; O2SAT 92
[2024-01-19 01:15] VITALS: BP 115/74
[2024-01-19 01:30] VITALS: BP 111/84; PULSE 57; RESP 24; O2SAT 92
[2024-01-19 01:45] VITALS: BP 108/70; PULSE 56; RESP 13; O2SAT 91
[2024-01-19 02:19] VITALS: BP 106/71; PULSE 55; RESP 18; TEMP 36.3; O2SAT 91
== END 2024-01-19 02:20 | disposition home or self-care (01) ==
PROVIDERS: Emergency Provider Emergency Medicine; PCP Family Medicine; Visit Provider Emergency Medicine
DX: R53.1 Weakness (principal); F03.90 Unspecified dementia, unspecified severity, without behavioral disturbance, psychotic disturbance, mood disturbance, and anxiety; I48.0 Paroxysmal atrial fibrillation; E11.9 Type 2 diabetes mellitus without complications; Z79.01 Long term (current) use of anticoagulants; B34.9 Viral infection, unspecified; J98.11 Atelectasis; Z87.891 Personal history of nicotine dependence; I10 Essential (primary) hypertension; E78.5 Hyperlipidemia, unspecified; K21.9 Gastro-esophageal reflux disease without esophagitis; E66.9 Obesity, unspecified; R09.02 Hypoxemia; R06.02 Shortness of breath
CPT/HCPCS: 71045; 80048; 81001; 83735; 83880; 85025; 85610; 85730; 87631; 94640; 99284; A4216